=== PATIENT | male | born 1955 | race Caucasian/White ===

== ENCOUNTER 2016-10-12 20:12 | Inpatient (IN) ==
--- NOTE | 2016-10-12 20:40 | Emergency Department Note ---
Disposition Clinical Impression: COPD (chronic obstructive pulmonary disease) Disposition: Admitted As Inpatient Condition: Good Referrals: Bhavik Brewster MD [Primary Care Provider] - Forms: ED Satisfaction Letter Time of Disposition: 21:47 ([facility]) URI/Sore Throat HPI - General Chief Complaint: ED Upper Respiratory Infection Stated Complaint: low o2 sat Time Seen by Provider: 10/12/16 20:14 Source: patient Limitations: no limitations Nursing Notes Reviewed: Yes Vital Signs Reviewed: Yes - History of Present Illness HPI Narrative: Patient's been having increasing shortness of breath he has been intubated twice in the past she is here to the ER if he does not have to be intubated he says that he has been trying BiPAP at home with little relief of fevers no chills he has had shortness breath no chest pain no chest pressure denies diarrhea melena hematochezia hematemesis denies any evidence of illness or infection other than his COPD he says Pt Subjective Complaint: other (Short of breath) Onset (ago): day(s) Duration: constant, gradually worsening Severity: moderate Improves with: nothing Worsens with: exertion If sputum, description: clear Associated symptoms: Reports: nasal congestion, shortness of breath. Denies: fever, chills, voice changes, myalgias, diaphoresis, headache, rhinorrhea, sore throat, stiff neck, cough, chest pain, abdominal pain, nausea, vomiting, diarrhea, dysuria, rash, ear pain Treatments prior to arrival: none - Related Data Home Medications Medication Instructions Recorded Confirmed Ipratropium/Albuterol Sulfate 1 puff IH QID 11/14/15 10/12/16 [Combivent Respimat Inhal [place]] Trazodone HCl [TraZODone] 300 mg PO HS 11/14/15 10/12/16 Aspirin 81 mg PO DAILY 03/19/16 10/12/16 Budesonide/Formoterol 160/4.5 2 puff IH BIDR 03/19/16 10/12/16 [Symbicort 160/4.5] Albuterol Sulfate [Ventolin Hfa] 2 puff IH Q4H PRN 06/30/16 10/12/16 Cyanocobalamin (B-12) [Vitamin B12] 1,000 mcg PO DAILY 06/30/16 10/12/16 Omeprazole [PriLOSEC] 40 mg PO DAILY 06/30/16 10/12/16 Acetaminophen [Tylenol] 650 mg PO Q6HR 08/20/16 10/12/16 Loratadine [Claritin] 10 mg PO QAM 08/20/16 10/12/16 Tiotropium [Spiriva] 18 mcg IH DAILY 08/20/16 10/12/16 Ipratropium/Albuterol Neb [Duoneb] 3 ml IH Q4HR 08/31/16 10/12/16 Previous Rx's Medication Instructions Recorded Amlodipine [Norvasc] 5 mg PO DAILY #30 tablet 03/20/16 Amitriptyline [Elavil] 25 mg PO HS #30 tablet 07/06/16 Oxycodone HCl 10 mg PO Q8H PRN #15 tab 07/06/16 Pregabalin [Lyrica] 150 mg PO TID #20 capsule 07/06/16 Tramadol HCl [Ultram] 50 mg PO TID PRN #20 tablet 07/06/16 PredniSONE 40 mg PO DAILY #6 tablet 09/22/16 Allergies Allergy/AdvReac Type Severity Reaction Status Date / Time Sulfa (Sulfonamide Allergy Hives Verified 07/31/16 19:28 Antibiotics) All systems ED: reviewed and negative except as stated. Constitutional: Reports: weakness. Denies: fever, chills Eyes: Denies: eye pain, eye discharge ENT ED: Denies: ear pain, throat pain Cardiovascular: Reports: dyspnea on exertion, paroxysmal nocturnal dyspnea. Denies: chest pain, palpitations Respiratory: Reports: dyspnea, wheezes Gastrointestinal: Denies: abdominal pain, nausea, vomiting Genitourinary: Denies: urgency, dysuria, frequency Musculoskeletal: Denies: back pain, neck pain Integumentary: Denies: abrasion, lesions Neurological: Denies: headache, weakness Psychiatric: Denies: anxiety, depression Endocrine: Reports: fatigue. Denies: heat or cold intolerance Hematological/Lymphatic: Denies: easy bleeding Allergic/Immunologic: Denies: facial swelling URI PMH - Past Medical History Medical history: Reports: COPD, CVA, GERD, hepatitis, hyperlipidemia, hypertension, RA Surgical history: Reports: orthopedic, other Psychiatric history: Reports: anxiety - Social History Smoking Status: Current every day smoker Alcohol use: Reports: none Drug use: Reports: none Physical Exam - General Limitations: no limitations General appearance: alert, anxious, in distress, obese - Head Head exam: atraumatic, normocephalic, normal inspection - Eye Eye exam: Present: normal appearance, PERRL, EOMI - ENT ENT exam: normal exam, normal oropharynx, mucous membranes moist, normal external ear exam - Neck Neck exam: Present: normal inspection, full ROM, trachea midline - Chest Chest inspection: Present: normal inspection, symmetric chest wall rise - Respiratory Respiratory exam: Present: respiratory distress, accessory muscle use, prolonged expiratory phase - Cardiovascular Cardiovascular exam: Present: regular rate, normal rhythm, normal heart sounds - Abdominal Exam Abdominal exam: Present: soft, Non-Tender, normal bowel sounds. Absent: mass, pulsatile mass - Extremities Exam Extremities exam: Present: normal inspection, full ROM, normal capillary refill. Absent: tenderness, joint swelling - Expanded Lower Extremity Exam Gait: observed and normal - Back Exam Back exam: Present: normal inspection, full ROM. Absent: muscle spasm - Neurological Exam Neurological exam: Present: alert, oriented X3, CN II-XII intact - Psychiatric Psychiatric exam: Present: normal affect, normal mood, anxious - Skin Skin exam: Present: warm, dry, intact, normal color Course Course Narrative: Condition initially seen and examined gives a history that he has CO2 retention ABG was obtained patient was immediately placed on BiPAP patient was placed on settings but he does not notice settings home as result multiple medication changes were done after Dr. Jimenez's agreed to accept to service to make sure that he is not having any further deterioration patient when had his O2 turned him and his rate turned up seem to respond very well to this sign the case having improvement of his ABGs as result after multiple settings during his previous time here in the ER showing improvement patient was then transferred to [facility] for further management and stabilization of his COPD condition patient agrees and understands transferred to service of Dr. Jimenez Vital Signs Temperature 98.0 F 10/12/16 20:14 Temperature 98.7 F 10/13/16 00:20 Pulse Rate 94 10/13/16 00:57 Respiratory Rate 24 10/13/16 00:57 Blood Pressure 148/89 10/13/16 00:57 O2 Sat by Pulse Oximetry 96 10/13/16 00:57 Oxygen Delivery Oxygen Delivery Bipap Procedures - ABG Interpretation ABG Interpretation 1 Interpretation: respiratory acidosis ABG Interpretation 2 Interpretation: respiratory acidosis Additional Comments: Slight worsening ABG Interpretation 3 Interpretation: respiratory acidosis Additional Comments: Slight improvement ABGs #4,5 and 6 which are documented to the charge continues show respiratory acidosis where he is retaining right around 80s to 90s on the CO2 but with a decrease of his aorta to an increasing respiratory rate his CO2 seems to be responding well now and starting to improve patient will be admitted to [facility] transferred Upper Respiratory Infection - MDM Narrative Medical decision making narrative: COPD bronchitis pneumonia Dental CO2 narcosis as a result of CO2 retention which she has been intubated twice previously - Differential Diagnosis Differential Diagnosis: Likely: upper respiratory infection - Medical Records Medical records reviewed: Yes I reviewed the patient's medical records. - Lab Data Lab results reviewed: Yes I reviewed the patient's lab results. Result diagrams: 10/12/16 20:30 10/12/16 20:30 Lab Results 10/12/16 10/12/16 10/12/16 Range/Units 20:30 20:30 20:30 WBC 6.3 (4.3-11.1) K/mcL RBC 4.29 (4.19-5.50) M/mcL Hgb 12.2 L (12.9-16.9) g/dL Hct 39.6 (37.5-50.1) % MCV 92.3 (83.0-100.0) fL MCH 28.4 (28.0-33.3) pg MCHC 30.8 L (31.6-35.5) g/dL RDW 14.5 (11.5-14.5) % Plt Count 158 (140-400) K/mcL MPV 9.6 (9.4-12.4) fL Immature Gran % 2.2 (0-4) % Seg Neutrophils % 63.4 % Lymphocytes % 24.8 % Monocytes % 7.4 % Eosinophils % 1.6 % Basophils % 0.6 % Neutrophils # 4.0 (1.6-8.9) K/mcL Lymphocytes # 1.6 (0.6-4.6) K/mcL Monocytes # 0.5 (0.0-1.3) K/mcL Eosinophils # 0.1 (0.0-0.6) K/mcL Basophils # 0.0 (0.0-0.2) K/mcL PT 9.4 (9.4-12.1) Seconds INR 0.9 APTT 27.7 (26.0-36.0) Seconds ABG pH (7.32-7.45) pH Units ABG pCO2 (35-45) mmHg ABG pO2 (85-104) mmHg ABG HCO3 (21-27) mEQ/L ABG Total CO2 (20-26) mEq/L ABG O2 Saturation (95-98) % ABG Base Excess (-2.0 to 3.0) mEq/L Respiration Rate Liter Flow L/MIN Blood Gas Modality Inspired O2 % Inspiratory BiPAP cm H2O Expiratory BiPAP cm H2O Sodium 143 (136-145) mEq/L Potassium 4.6 H (3.5-4.5) mEq/L Chloride 101 (98-109) mEq/L Carbon Dioxide 32 H (19-29) mEq/L BUN 21 (8-26) mg/dL Creatinine 1.28 H (0.72-1.25) mg/dL Est GFR ( Amer) > 60 (> 60) Est GFR (Non-Af Amer) 58 L (> 60) BUN/Creatinine Ratio 16 (6-26) Glucose 138 H (70-99) mg/dL Calculated Osmolality 301 H (280-300) Calcium 9.2 (8.6-10.8) mg/dL B-Natriuretic Peptide (0-100) pg/mL 10/12/16 10/12/16 10/12/16 Range/Units 20:30 21:05 22:30 WBC (4.3-11.1) K/mcL RBC (4.19-5.50) M/mcL Hgb (12.9-16.9) g/dL Hct (37.5-50.1) % MCV (83.0-100.0) fL MCH (28.0-33.3) pg MCHC (31.6-35.5) g/dL RDW (11.5-14.5) % Plt Count (140-400) K/mcL MPV (9.4-12.4) fL Immature Gran % (0-4) % Seg Neutrophils % % Lymphocytes % % Monocytes % % Eosinophils % % Basophils % % Neutrophils # (1.6-8.9) K/mcL Lymphocytes # (0.6-4.6) K/mcL Monocytes # (0.0-1.3) K/mcL Eosinophils # (0.0-0.6) K/mcL Basophils # (0.0-0.2) K/mcL PT (9.4-12.1) Seconds INR APTT (26.0-36.0) Seconds ABG pH 7.28 L 7.23 L (7.32-7.45) pH Units ABG pCO2 82 H* 92 H* (35-45) mmHg ABG pO2 53 L 74 L (85-104) mmHg ABG HCO3 38.8 H 38.7 H (21-27) mEQ/L ABG Total CO2 41.3 H 41.6 H (20-26) mEq/L ABG O2 Saturation 80 L 90 L (95-98) % ABG Base Excess 12.1 H 11.2 H (-2.0 to 3.0) mEq/L Respiration Rate 16 Liter Flow 3 L/MIN Blood Gas Modality NC BiPap Inspired O2 36 % Inspiratory BiPAP 14 cm H2O Expiratory BiPAP 6 cm H2O Sodium (136-145) mEq/L Potassium (3.5-4.5) mEq/L Chloride (98-109) mEq/L Carbon Dioxide (19-29) mEq/L BUN (8-26) mg/dL Creatinine (0.72-1.25) mg/dL Est GFR ( Amer) (> 60) Est GFR (Non-Af Amer) (> 60) BUN/Creatinine Ratio (6-26) Glucose (70-99) mg/dL Calculated Osmolality (280-300) Calcium (8.6-10.8) mg/dL B-Natriuretic Peptide 19 (0-100) pg/mL 10/12/16 10/13/16 Range/Units 23:55 00:40 WBC (4.3-11.1) K/mcL RBC (4.19-5.50) M/mcL Hgb (12.9-16.9) g/dL Hct (37.5-50.1) % MCV (83.0-100.0) fL MCH (28.0-33.3) pg MCHC (31.6-35.5) g/dL RDW (11.5-14.5) % Plt Count (140-400) K/mcL MPV (9.4-12.4) fL Immature Gran % (0-4) % Seg Neutrophils % % Lymphocytes % % Monocytes % % Eosinophils % % Basophils % % Neutrophils # (1.6-8.9) K/mcL Lymphocytes # (0.6-4.6) K/mcL Monocytes # (0.0-1.3) K/mcL Eosinophils # (0.0-0.6) K/mcL Basophils # (0.0-0.2) K/mcL PT (9.4-12.1) Seconds INR APTT (26.0-36.0) Seconds ABG pH 7.20 L* 7.23 L (7.32-7.45) pH Units ABG pCO2 99 H* 87 H* (35-45) mmHg ABG pO2 68 L 76 L (85-104) mmHg ABG HCO3 38.3 H 36.5 H (21-27) mEQ/L ABG Total CO2 41.3 H 39.2 H (20-26) mEq/L ABG O2 Saturation 87 L 91 L (95-98) % ABG Base Excess 6.5 H 8.9 H (-2.0 to 3.0) mEq/L Respiration Rate 20 24 Liter Flow L/MIN Blood Gas Modality bipap BiPap Inspired O2 35 35 % Inspiratory BiPAP 18 18 cm H2O Expiratory BiPAP 8 8 cm H2O Sodium (136-145) mEq/L Potassium (3.5-4.5) mEq/L Chloride (98-109) mEq/L Carbon Dioxide (19-29) mEq/L BUN (8-26) mg/dL Creatinine (0.72-1.25) mg/dL Est GFR ( Amer) (> 60) Est GFR (Non-Af Amer) (> 60) BUN/Creatinine Ratio (6-26) Glucose (70-99) mg/dL Calculated Osmolality (280-300) Calcium (8.6-10.8) mg/dL B-Natriuretic Peptide (0-100) pg/mL - Radiology Data Radiology results reviewed: Yes I reviewed the patient's radiology results. Critical Care Time Critical Care Time: No
[2016-10-12 20:48] LABS: Basophils % 0.6 %; Eosinophils # 0.1 K/mcL (0.0-0.6); Eosinophils % 1.6 %; Hematocrit 39.6 % (37.5-50.1); Hemoglobin 12.2 g/dL (12.9-16.9); Immature Granulocytes % 2.2 % (0-4); Lymphocytes # 1.6 K/mcL (0.6-4.6); Lymphocytes % 24.8 %; Mean Corpuscular HGB Conc 30.8 g/dL (31.6-35.5); Mean Corpuscular Hemoglobin 28.4 pg (28.0-33.3); Mean Corpuscular Volume 92.3 fL (83.0-100.0); Mean Platelet Volume 9.6 fL (9.4-12.4); Monocytes # 0.5 K/mcL (0.0-1.3); Monocytes % 7.4 %; Platelet Count 158 K/mcL (140-400); Red Blood Count 4.29 M/mcL (4.19-5.50); Red Cell Distribution Width 14.5 % (11.5-14.5); Segmented Neutrophils % 63.4 %
[2016-10-12 20:51] LABS: INR 0.9; Prothrombin Time 9.4 Seconds (9.4-12.1)
[2016-10-12 20:54] LABS: Activated Partial Thrombo Time 27.7 Seconds (26.0-36.0)
[2016-10-12 20:58] LABS: BUN/Creatinine Ratio 16 (6-26); Blood Urea Nitrogen 21 mg/dL (8-26); Calcium 9.2 mg/dL (8.6-10.8); Carbon Dioxide 32 mEq/L (19-29); Chloride 101 mEq/L (98-109); Glucose 138 mg/dL (70-99); Osmolality,Calculated 301 (280-300); Potassium 4.6 mEq/L (3.5-4.5); Sodium 143 mEq/L (136-145); eGFR For African Americans > 60 (> 60); eGFR For Non-African Americans 58 (> 60)
[2016-10-12 21:15] LABS: ABG PH 7.28 pH Units (7.32-7.45); Blood Gas Liter Flow 3 L/MIN
[2016-10-12 21:16] LABS: ABG Base Excess 12.1 mEq/L (-2.0 to 3.0); ABG HCO3 38.8 mEQ/L (21-27); ABG PCO2 82 mmHg (35-45); ABG PO2 53 mmHg (85-104); ABG TCO2 41.3 mEq/L (20-26)
[2016-10-12 21:17] LABS: ABG Oxygen Saturation 80 % (95-98)
[2016-10-12 22:37] LABS: ABG Base Excess 11.2 mEq/L (-2.0 to 3.0); ABG HCO3 38.7 mEQ/L (21-27); ABG PCO2 92 mmHg (35-45); ABG PH 7.23 pH Units (7.32-7.45); ABG PO2 74 mmHg (85-104); ABG TCO2 41.6 mEq/L (20-26)
[2016-10-12 22:38] LABS: ABG Oxygen Saturation 90 % (95-98)
[2016-10-13 00:05] LABS: Blood Gas FiO2 35 %
[2016-10-13 00:06] LABS: Blood Gas BiPAP(E) 8 cm H2O; Blood Gas BiPAP(I) 18 cm H2O; Blood Gas Respiration Rate 20
[2016-10-13 00:09] LABS: ABG Base Excess 6.5 mEq/L (-2.0 to 3.0); ABG HCO3 38.3 mEQ/L (21-27); ABG PCO2 99 mmHg (35-45); ABG PO2 68 mmHg (85-104); ABG TCO2 41.3 mEq/L (20-26)
[2016-10-13 00:10] LABS: ABG Oxygen Saturation 87 % (95-98)
[2016-10-13 00:43] LABS: Blood Gas BiPAP(E) 8 cm H2O; Blood Gas BiPAP(I) 18 cm H2O; Blood Gas FiO2 35 %; Blood Gas Respiration Rate 24
[2016-10-13 00:47] LABS: ABG PH 7.23 pH Units (7.32-7.45)
[2016-10-13 00:48] LABS: ABG PCO2 87 mmHg (35-45); ABG PO2 76 mmHg (85-104)
[2016-10-13 00:49] LABS: ABG Base Excess 8.9 mEq/L (-2.0 to 3.0); ABG HCO3 36.5 mEQ/L (21-27); ABG Oxygen Saturation 91 % (95-98); ABG TCO2 39.2 mEq/L (20-26)
[2016-10-13 01:20] LABS: Blood Gas BiPAP(E) 6 cm H2O; Blood Gas BiPAP(I) 14 cm H2O; Blood Gas FiO2 36 %; Blood Gas Respiration Rate 16
[2016-10-13 02:18] LABS: Blood Gas BiPAP(E) 8 cm H2O; Blood Gas BiPAP(I) 18 cm H2O; Blood Gas FiO2 35 %; Blood Gas Respiration Rate 26
[2016-10-13 02:20] LABS: ABG PH 7.22 pH Units (7.32-7.45)
[2016-10-13 02:23] LABS: ABG HCO3 36.8 mEQ/L (21-27); ABG PCO2 90 mmHg (35-45); ABG PO2 76 mmHg (85-104); ABG TCO2 39.5 mEq/L (20-26)
[2016-10-13 02:24] LABS: ABG Base Excess 5.7 mEq/L (-2.0 to 3.0); ABG Oxygen Saturation 91 % (95-98)
[2016-10-13 03:08] LABS: Blood Gas BiPAP(E) 8 cm H2O; Blood Gas BiPAP(I) 18 cm H2O; Blood Gas FiO2 32 %; Blood Gas Respiration Rate 26
[2016-10-13 03:09] LABS: ABG PH 7.25 pH Units (7.32-7.45)
[2016-10-13 03:10] LABS: ABG Base Excess 9.1 mEq/L (-2.0 to 3.0); ABG HCO3 36.4 mEQ/L (21-27); ABG Oxygen Saturation 85 % (95-98); ABG PCO2 84 mmHg (35-45); ABG PO2 62 mmHg (85-104)
[2016-10-13] MEDS ORDERED: Ondansetron ODT 4 MG TAB.RAPDIS SL PRN (03:35)
[2016-10-13] MEDS ORDERED: Acetaminophen 325 MG TABLET PO SCH (03:35)
[2016-10-13] MEDS ORDERED: Albuterol 2.5 MG/3 ML NEBULIZER IH PRN (03:35)
[2016-10-13] MEDS ORDERED: Naloxone 0.4 MG/ML INJ IVP PRN (03:35)
[2016-10-13] MEDS: Ipratropium/Albuterol Neb 3 ML IH SCH ×2 (04:21→04:23)
[2016-10-13] MEDS: Budesonide/Formoterol 160/4.5 MDI IH SCH ×3 (04:21→21:21)
[2016-10-13] MEDS ORDERED: Acetaminophen 325 MG TABLET PO PRN (04:38)
[2016-10-13 06:13] LABS: Blood Gas BiPAP(E) 8 cm H2O; Blood Gas BiPAP(I) 18 cm H2O; Blood Gas FiO2 32 %; Blood Gas Respiration Rate 26
[2016-10-13 06:16] LABS: ABG PH 7.28 pH Units (7.32-7.45)
[2016-10-13 06:17] LABS: ABG Base Excess 10.2 mEq/L (-2.0 to 3.0); ABG HCO3 36.9 mEQ/L (21-27); ABG Oxygen Saturation 84 % (95-98); ABG PCO2 78 mmHg (35-45); ABG PO2 57 mmHg (85-104); ABG TCO2 39.3 mEq/L (20-26)
[2016-10-13 06:52] LABS: Basophils % 0.4 %; Eosinophils # 0.1 K/mcL (0.0-0.6); Eosinophils % 1.4 %; Hematocrit 38.1 % (37.5-50.1); Hemoglobin 11.6 g/dL (12.9-16.9); Immature Granulocytes % 1.8 % (0-4); Lymphocytes # 0.6 K/mcL (0.6-4.6); Lymphocytes % 10.1 %; Mean Corpuscular HGB Conc 30.4 g/dL (31.6-35.5); Mean Corpuscular Hemoglobin 28.4 pg (28.0-33.3); Mean Corpuscular Volume 93.2 fL (83.0-100.0); Mean Platelet Volume 9.8 fL (9.4-12.4); Monocytes # 0.4 K/mcL (0.0-1.3); Monocytes % 6.9 %; Neutrophils # 4.5 K/mcL (1.6-8.9); Platelet Count 140 K/mcL (140-400); Red Blood Count 4.09 M/mcL (4.19-5.50); Red Cell Distribution Width 14.6 % (11.5-14.5); Segmented Neutrophils % 79.4 %
[2016-10-13 06:57] LABS: Prothrombin Time 10.2 Seconds (9.4-12.1)
[2016-10-13 07:00] LABS: Activated Partial Thrombo Time 27.4 Seconds (26.0-36.0)
[2016-10-13 07:08] LABS: BUN/Creatinine Ratio 20 (6-26); Blood Urea Nitrogen 20 mg/dL (8-26); Calcium 9.1 mg/dL (8.6-10.8); Carbon Dioxide 33 mEq/L (19-29); Chloride 102 mEq/L (98-109); Glucose 114 mg/dL (70-99); Osmolality,Calculated 299 (280-300); Potassium 4.5 mEq/L (3.5-4.5); Sodium 143 mEq/L (136-145); eGFR For African Americans > 60 (> 60); eGFR For Non-African Americans > 60 (> 60)
[2016-10-13] MEDS: Tiotropium 18 MCG inhalation IH SCH (10:10)
[2016-10-13] MEDS: Aspirin 81 MG TAB.CHEW PO SCH (10:21)
[2016-10-13] MEDS: Loratadine 10 MG TABLET PO SCH ×2 (10:21→10:36)
[2016-10-13] MEDS: Cyanocobalamin (B-12) 1,000 MCG TABLET PO SCH ×2 (10:21→10:36)
[2016-10-13] MEDS: Pregabalin 50 MG CAPSULE PO SCH ×3 (10:21→20:56)
[2016-10-13] MEDS: *HR* OxyCODONE Immed Rel 5 MG TABLET PO PRN ×2 (10:35→18:41)
--- NOTE | 2016-10-13 10:53 | Internal Med History&Physical ---
Date of Encounter: 10/13/16 Time of Encounter: 10:25 Assessment and Plan (1) Pneumonia Current visit: No Status: Acute Chest x-ray showed bilateral patchy infiltrates. He has been started on Levaquin. I will add lactobacillus. Qualifiers: Pneumonia type: due to unspecified organism Laterality: right Lung location: lower lobe of lung Qualified Code(s): J18.9 - Pneumonia, unspecified organism (2) COPD (chronic obstructive pulmonary disease) Current visit: No Status: Chronic Will continue with IV steroids, antibiotics, and Spiriva with prn albuterol nebs. Recheck blood gas in a.m. Qualifiers: COPD type: emphysema Emphysema type: unspecified Qualified Code(s): J43.9 - Emphysema, unspecified (3) DARYL (obstructive sleep apnea) Current visit: No Status: Chronic Continue CPAP at bedtime and as needed (4) Anemia Current visit: No Status: Chronic Anemia testing done 04/20/2016 showed no factor deficiency. Will recheck in a.m. Qualifiers: Anemia type: unspecified type Qualified Code(s): D64.9 - Anemia, unspecified Internal Medicine - H&P: HPI Chief complaint: Hypoxemia Admitted From: Home Plans for Post Hospital Care: Home History of present illness: Mr. eDlcid is a 61 year old male came to emergency complaining of hypoxemia which he states his saturations were in the 90s and 80s percent stapling. He did not feel dyspneic or have cough or chest pain. He took an albuterol nebulizer treatment with minimal change in his saturations. He came to emergency room and was evaluated and found to have acute respiratory insufficiency with ABG showing pH 7.20 and PCO2 of 99. He was placed on BiPAP and admitted to [facility] floor for ongoing care needs. He was hospitalized last at [facility] April 2016 with a diagnosis of pneumonia. His respiratory history is significant for having smoked since age 15 up to 2 packs per day. He wears oxygen 24/7 and uses CPAP at bedtime and as needed during the daytime for dyspnea. He had PFTs done approximately 2011 and was told he had COPD. Past Med Surg Social Fam HX - Past Medical History Medical history: COPD, CVA, GERD, hepatitis, hyperlipidemia, hypertension, RA Psychiatric history: anxiety - Past Surgical History Surgical History: orthopedic, other - Social History Smoking Status: Current every day smoker Smokeless Tobacco Status: No Alcohol use: none Drug use: none - Family History Father Living Status: Hx Family Cardiac Disorders: Yes Hx Family Respiratory Disorders: Yes Hx Family Cancer: No Hx Family GI Disorders: No Hx Family Endocrine Disorder: No Hx Family Neuromuscular Disorders: No Hx Family Neurologic Disorders: No Hx Family HEENT Disorders: No Hx Family Autoimmune Disorders: No Internal Medicine - H&P: Meds Ipratropium/Albuterol Sulfate [Combivent Respimat Inhal [place]] 1 puff IH QID [History] Trazodone HCl [TraZODone] 300 mg PO HS 11/14/15 [History] Aspirin 81 mg PO DAILY 03/19/16 [History] Budesonide/Formoterol 160/4.5 [Symbicort 160/4.5] 2 puff IH BIDR 03/19/16 [ History] Amlodipine [Norvasc] 5 mg PO DAILY #30 tablet 03/20/16 [Rx] Albuterol Sulfate [Ventolin Hfa] 2 puff IH Q4H PRN 06/30/16 [History] Cyanocobalamin (B-12) [Vitamin B12] 1,000 mcg PO DAILY 06/30/16 [History] Omeprazole [PriLOSEC] 40 mg PO DAILY 06/30/16 [History] Amitriptyline [Elavil] 25 mg PO HS #30 tablet 07/06/16 [Rx] Oxycodone HCl 10 mg PO Q8H PRN #15 tab 07/06/16 [Rx] Pregabalin [Lyrica] 150 mg PO TID #20 capsule 07/06/16 [Rx] Tramadol HCl [Ultram] 50 mg PO TID PRN #20 tablet 07/06/16 [Rx] Acetaminophen [Tylenol] 650 mg PO Q6HR 08/20/16 [History] Loratadine [Claritin] 10 mg PO QAM 08/20/16 [History] Tiotropium [Spiriva] 18 mcg IH DAILY 08/20/16 [History] Ipratropium/Albuterol Neb [Duoneb] 3 ml IH Q4HR 08/31/16 [History] PredniSONE 40 mg PO DAILY #6 tablet 09/22/16 [Rx] Allergies Sulfa (Sulfonamide Antibiotics) Allergy (Verified 07/31/16 19:28) Hives All Systems PM: A 10-system review of systems was performed and is negative for pertinent findings except as documented above in the HPI. Review of systems: Review of systems from hospitalization April 2016 were reviewed and revised as below. Gen.: His weight is increased from 90.356 kg on 04/20/2016 to admission weight of 99.79 kg at present. Cardiovascular: He denies PA hypertension heart failure angina DVT or pulmonary embolus Respiratory: As per history of present illness GI: He has been diagnosed with hepatitis C but states he was treated with Harvoni and is now free of the virus. The chart reports he has had hepatitis B in the past but he denies this. He denies other disorders of his liver or exocrine pancreas. He has asymptomatic gallstones. : Denies hematuria dysuria or kidney stones Neurologic: He claims he has CVA 2014 affecting his left hand fourth and fifth fingers. He was told in the hospital he had ulnar neuropathy on the left side affecting his left fourth and fifth fingers. No referral was made to orthopedist for ulnar nerve transposition surgery. He has had numbness of his right hand since June 2014. He had foot drop onset spring 2014 on his left foot and wears an AFO splint. Endocrine: He denies diabetes thyroid disease or hyperlipidemia Hematology/oncology: He has anemia but denies internal malignancies. He had B12 deficiency documented in the past Psychiatric: He has history of depression but does not take regular medication for this [place] skeletal: He had surgery 01/20/2016 for "fluid" of the right shoulder. He had debridement 03/18/2016 by and was found to have a rotator cuff tear. He received a 6 week course of IV Kefzol for osteomyelitis. He has a diagnosis of rheumatoid arthritis and follows with a target setter. He denies gout or other bone joint or muscle disorders. - Constitutional Vitals: Temp Pulse Resp BP Pulse Ox 98.4 F 83 20 137/87 92 L 10/13/16 10:38 10/13/16 10:38 10/13/16 10:38 10/13/16 10:38 10/13/16 10:38 Exam: Gen.: He is well-developed overweight male lying in bed who appears in minimal distress at present time. HEENT: Head is atraumatic and normocephalic. Eyes: EOMI. There is no scleral icterus. Mouth: Mucosa is moist. Neck: Supple and nontender. There is no thyromegaly or adenopathy noted. Heart: Regular without murmurs gallops or ectopics. Lungs: He has diminished breath sounds diffusely. There is mild prolonged expiratory phase. No egophony is heard. Abdomen: Soft and nontender. No masses or guarding are noted. Extremities: There is no cyanosis edema or clubbing noted. Dorsalis pedis and posttibial pulses are trace palpable bilaterally. He has rheumatoid arthritis changes of his hands with ulnar deviation and enlargement of his MCP joints. Neurologic: Mental status: He is talkative and a good historian. Cranial nerves : Smile is symmetric. Forehead wrinkles bilaterally. Tongue protrudes midline. EOMI. Motor: There is no pronator drift. Cerebellar: Finger to nose is intact bilaterally. Skin: Warm and dry Internal Med - H&P Results - Labs CBC & Chem 7: 10/13/16 06:21 10/13/16 06:21 Labs: Short CBC 10/13/16 Range/Units 06:21 WBC 5.7 (4.3-11.1) K/mcL Hgb 11.6 L (12.9-16.9) g/dL Hct 38.1 (37.5-50.1) % Plt Count 140 (140-400) K/mcL Neutrophils # 4.5 (1.6-8.9) K/mcL BMP 10/13/16 10/13/16 06:21 06:21 Sodium 143 Potassium 4.5 Chloride 102 Carbon Dioxide 33 H BUN 20 Creatinine 1.01 Glucose 115 H 114 H Calcium 9.1 - ABG Interpretation ABG results: 10/13/16 06:05 ABG pH 7.28 L ABG pCO2 78 H* ABG pO2 57 L ABG HCO3 36.9 H ABG Total CO2 39.3 H ABG O2 Saturation 84 L ABG Base Excess 10.2 H
[2016-10-13] MEDS: Nicotine 14 MG PATCH.TD24 TD SCH (11:53)
[2016-10-13] MEDS: PredniSONE 10 MG TABLET PO SCH (16:18)
[2016-10-13] MEDS: *HR* Enoxaparin 40 MG/0.4 ML SYRINGE SQ SCH (17:38)
[2016-10-13] MEDS: Lactobacillus 1 EACH CAP.SPRINK PO SCH (20:57)
[2016-10-14 05:08] LABS: Basophils % 0.3 %; Hematocrit 37.1 % (37.5-50.1); Hemoglobin 11.5 g/dL (12.9-16.9); Immature Granulocytes % 2.6 % (0-4); Lymphocytes # 0.8 K/mcL (0.6-4.6); Mean Corpuscular Hemoglobin 28.3 pg (28.0-33.3); Mean Corpuscular Volume 91.4 fL (83.0-100.0); Mean Platelet Volume 9.6 fL (9.4-12.4); Monocytes # 0.6 K/mcL (0.0-1.3); Monocytes % 8.4 %; Neutrophils # 5.3 K/mcL (1.6-8.9); Platelet Count 148 K/mcL (140-400); Red Blood Count 4.06 M/mcL (4.19-5.50); Red Cell Distribution Width 13.8 % (11.5-14.5); Segmented Neutrophils % 77.7 %
[2016-10-14] MEDS: *HR* Enoxaparin 40 MG/0.4 ML SYRINGE SQ SCH ×2 (06:23→07:53)
[2016-10-14] MEDS: *HR* OxyCODONE Immed Rel 5 MG TABLET PO PRN (06:40)
[2016-10-14 06:50] LABS: ABG Base Excess 10.7 mEq/L (-2.0 to 3.0); ABG HCO3 36.4 mEQ/L (21-27); ABG Oxygen Saturation 85 % (95-98); ABG PCO2 67 mmHg (35-45); ABG PH 7.35 pH Units (7.32-7.45); ABG PO2 54 mmHg (85-104); ABG TCO2 38.4 mEq/L (20-26); Blood Gas BiPAP(E) 8 cm H2O; Blood Gas BiPAP(I) 18 cm H2O; Blood Gas FiO2 35 %; Blood Gas Respiration Rate 26
[2016-10-14 08:18] VITALS: BP 134/77
[2016-10-14] MEDS: Lactobacillus 1 EACH CAP.SPRINK PO SCH (09:14)
[2016-10-14] MEDS: PredniSONE 10 MG TABLET PO SCH (09:14)
[2016-10-14] MEDS: Cyanocobalamin (B-12) 1,000 MCG TABLET PO SCH (09:14)
[2016-10-14] MEDS: Pregabalin 50 MG CAPSULE PO SCH (09:15)
[2016-10-14] MEDS: Nicotine 14 MG PATCH.TD24 TD SCH (09:15)
[2016-10-14] MEDS: Aspirin 81 MG TAB.CHEW PO SCH (09:15)
[2016-10-14] MEDS: Tiotropium 18 MCG inhalation IH SCH (09:24)
[2016-10-14] MEDS: Budesonide/Formoterol 160/4.5 MDI IH SCH (09:25)
[2016-10-14 09:29] LABS: % Iron Saturation 5 % (20-55); Iron 20 mcg/dL (65-175); Transferrin 298 mg/dL (174-364)
[2016-10-14 09:51] LABS: Ferritin 26 ng/ml (22-275)
--- NOTE | 2016-10-14 10:05 | Discharge Summary ---
Date of Encounter: 10/14/16 Time of Encounter: 09:45 - Discharge Diagnosis (1) Pneumonia Priority: Primary Status: Acute Qualifiers: Pneumonia type: due to unspecified organism Laterality: right Lung location: lower lobe of lung Qualified Code(s): J18.9 - Pneumonia, unspecified organism (2) COPD (chronic obstructive pulmonary disease) Priority: Secondary Status: Chronic Qualifiers: COPD type: emphysema Emphysema type: unspecified Qualified Code(s): J43.9 - Emphysema, unspecified (3) DARYL (obstructive sleep apnea) Priority: Secondary Status: Chronic (4) Anemia Priority: Secondary Status: Chronic Qualifiers: Anemia type: unspecified type Qualified Code(s): D64.9 - Anemia, unspecified - Discharge Medications Prescriptions: Ascorbic Acid [Vitamin C] 500 mg PO DAILY #30 tablet.er Ferrous Sulfate 325 mg PO DAILY #30 tablet. Lactobacillus [Culturelle] 1 each PO BID #10 cap.sprink Levofloxacin [Levaquin] 500 mg PO DAILY #5 tablet Home Medications: Trazodone HCl [TraZODone] 300 mg PO HS 11/14/15 [History] Aspirin 81 mg PO DAILY 03/19/16 [History] Budesonide/Formoterol 160/4.5 [Symbicort 160/4.5] 2 puff IH BIDR 03/19/16 [ History] Amlodipine [Norvasc] 5 mg PO DAILY #30 tablet 03/20/16 [Rx] Albuterol Sulfate [Ventolin Hfa] 2 puff IH Q4H PRN 06/30/16 [History] Cyanocobalamin (B-12) [Vitamin B12] 1,000 mcg PO DAILY 06/30/16 [History] Omeprazole [PriLOSEC] 40 mg PO DAILY 06/30/16 [History] Amitriptyline [Elavil] 25 mg PO HS #30 tablet 07/06/16 [Rx] Oxycodone HCl 10 mg PO Q8H PRN #15 tab 07/06/16 [Rx] Pregabalin [Lyrica] 150 mg PO TID #20 capsule 07/06/16 [Rx] Tramadol HCl [Ultram] 50 mg PO TID PRN #20 tablet 07/06/16 [Rx] Acetaminophen [Tylenol] 650 mg PO Q6HR 08/20/16 [History] Tiotropium [Spiriva] 18 mcg IH DAILY 08/20/16 [History] Ascorbic Acid [Vitamin C] 500 mg PO DAILY #30 tablet.er 10/14/16 [Rx] Ferrous Sulfate 325 mg PO DAILY #30 tablet. 10/14/16 [Rx] Lactobacillus [Culturelle] 1 each PO BID #10 cap.sprink 10/14/16 [Rx] Levofloxacin [Levaquin] 500 mg PO DAILY #5 tablet 10/14/16 [Rx] Allergies/Adverse Reactions: Allergies Sulfa (Sulfonamide Antibiotics) Allergy (Verified 07/31/16 19:28) Hives Date of admission: 10/13/16 16:39 Primary care physician: Bhavik Brewster MD - Patient Status Disposition: Home, Self-Care Condition: Good Overall status at discharge: patient is progressing back to baseline - Discharge Instructions Follow Up With: Bhavik Brewster MD [Primary Care Provider] - 1 week - Diet and Activity Activity: resume usual activities as tolerated, wear oxygen at all times Diet: advance to your usual diet Hospital course: Mr. Delcid is a 61 year old male who came to emergency complaining of hypoxemia. He states his saturations were in the 70s and 80s percent range. He did not feel dyspneic or have cough or chest pain. He took an albuterol nebulizer treatment with minimal change in his saturations. He came to emergency room and was evaluated and found to have acute respiratory insufficiency with ABG showing pH 7.20 and PCO2 of 99. He was placed on BiPAP and admitted to [facility] floor for ongoing care needs. Initial orders were written by the emergency room physician. I saw him on October 13 and performed the history and physical. He was started on Levaquin for probable bilateral pneumonia. Lactobacillus was added. He remained afebrile during his hospital stay. Follow-up CBC on October 14 showed a WBC normal at 6.8 with 77.7% segs. Follow-up ABG showed pH normal at 7.35 with PCO2 improved to 67. His PO2 was 54 but I felt this would improve with discontinuing smoking and improvement of the pneumonia. Anemia testing was ordered with some results pending at time of this dictation. His serum iron returned low at 20 and transferrin saturation low at 5%. He will be started on ferrous sulfate with vitamin C. When I saw him on October 14 he felt improved and back to his baseline. He wished to be discharged which I felt was reasonable. We had a long discussion about his need to become a nonsmoker. He will follow with his PCP Dr. Brewster within 1 week. - Time Spent with Patient Total time spent providing and/or coordinating discharge services: - Constitutional Vitals: Temp Pulse Resp BP Pulse Ox 98.3 F 69 26 134/77 96 10/13/16 23:40 10/14/16 08:17 10/14/16 01:40 10/14/16 08:17 10/14/16 08:17
[2016-10-14 10:06] LABS: Folate 9.8 ng/mL (7.0-31.4)
== END 2016-10-14 11:20 | disposition home or self-care (01) | DRG 140 ==
LOC: INPPIK 20:12 → EMEROOPIK 20:12 → INPPIK 10-13 03:57
PROVIDERS: ADMIT Internal Medicine; ATTEND Internal Medicine

== ENCOUNTER 2018-03-20 14:24 | Observation (INO) ==
--- NOTE | 2018-03-20 14:30 | Emergency Department Note ---
Disposition Clinical Impression: COPD (chronic obstructive pulmonary disease), Chest pain Disposition: Admitted As Inpatient Condition: Fair Referrals: Bhavik Brewster MD [Primary Care Provider] - Forms: ED Satisfaction Letter, Work/School Release Time of Disposition: 17:04 General Adult HPI - General Chief complaint: ED General Medical Stated complaint: Broke out in cold sweat, not feeling well Time Seen by Provider: 03/20/18 14:28 Source: patient Mode of arrival: ambulatory Limitations: no limitations Nursing Notes Reviewed: Yes Vital Signs Reviewed: Yes - History of Present Illness HPI Narrative: Was home this morning when he broke into a profound sweat became diaphoretic and had near-syncopal episode patient now presents here to the emergency room complaining of symptoms associated with this he states he just doesn't feel right feels that she's had a past he denies any blurred vision double vision loss vision diarrhea melena hematochezia hematemesis numbness and weakness recent weight gain or weight loss all systems have been reviewed and are otherwise negative Onset (ago): hour(s) (8) Location: other (Generalized) Consistency: now resolved Improves with: nothing Worsens with: nothing Associated symptoms: Reports: chest pain, diaphoresis, nausea/vomiting, shortness of breath, syncope (Near), weakness. Denies: confusion, cough, fever/ chills, headaches, loss of appetite, malaise, rash, seizure Treatments Prior to Arrival: Aspirin - Related Data Home Medications Medication Instructions Recorded Confirmed Trazodone HCl [TraZODone] 150 mg PO HS 11/14/15 03/20/18 Aspirin 81 mg PO DAILY 03/19/16 03/20/18 Budesonide/Formoterol 160/4.5 2 puff IH BIDR 03/19/16 03/20/18 [Symbicort 160/4.5] Albuterol Sulfate [Ventolin Hfa] 2 puff IH Q4H PRN 06/30/16 03/20/18 Omeprazole [PriLOSEC] 20 mg PO DAILY 06/30/16 03/20/18 Tiotropium [Spiriva] 18 mcg IH DAILY 08/20/16 03/20/18 Gabapentin [Neurontin] 800 mg PO TID 03/15/17 03/20/18 Potassium Chloride [K-Tab ER] 10 meq PO DAILY 10/20/17 03/20/18 Oxycodone HCl [Oxycontin] 10 mg PO 03/20/18 PredniSONE [Zan] 2 PO 03/20/18 Previous Rx's Medication Instructions Recorded amLODIPine [Norvasc] 5 mg PO DAILY #30 tablet 03/20/16 Allergies Allergy/AdvReac Type Severity Reaction Status Date / Time Sulfa (Sulfonamide Allergy Hives Verified 02/23/18 19:20 Antibiotics) All systems ED: reviewed and negative except as stated. Review of Systems: As Per HPI Constitutional: Reports: weakness. Denies: fever, chills Eyes: Denies: eye pain, eye discharge ENT ED: Denies: ear pain, throat pain Cardiovascular: Denies: chest pain, palpitations Respiratory: Denies: cough, dyspnea, wheezes Gastrointestinal: Denies: abdominal pain, nausea, vomiting Genitourinary: Denies: urgency, dysuria, frequency Musculoskeletal: Denies: back pain, neck pain Integumentary: Denies: rash, abrasion Neurological: Denies: headache, weakness Psychiatric: Denies: anxiety Endocrine: Denies: fatigue Hematological/Lymphatic: Denies: easy bleeding Allergic/Immunologic: Denies: facial swelling Past Medical History - Past Medical History Medical history: Reports: COPD, CVA, GERD, hepatitis, hyperlipidemia, hypertension, peripheral artery disease, RA, other Surgical history: Reports: orthopedic, other (Right shoulder) Psychiatric history: Reports: anxiety - Social History Smoking Status: Current every day smoker Smokeless Tobacco Status: No Alcohol use: Reports: none Drug use: Reports: none Physical Exam - General Limitations: no limitations General appearance: alert, in no apparent distress, anxious - Head Head exam: atraumatic, normocephalic, normal inspection - Eye Eye exam: Present: normal appearance, PERRL, EOMI - ENT ENT exam: normal exam, normal oropharynx, mucous membranes moist, TM's normal bilaterally, normal external ear exam - Neck Neck exam: Present: normal inspection, full ROM, trachea midline - Chest Chest inspection: Present: normal inspection, symmetric chest wall rise - Respiratory Respiratory exam: Present: normal lung sounds bilaterally - Cardiovascular Cardiovascular exam: Present: regular rate, normal rhythm, normal heart sounds - Abdominal Exam Abdominal exam: Present: soft, Non-Tender, normal bowel sounds. Absent: tenderness, distention, guarding, rebound, rigidity, mass, pulsatile mass - Extremities Exam Extremities exam: Present: normal inspection, full ROM, normal capillary refill. Absent: tenderness, pedal edema, joint swelling, calf tenderness - Expanded Upper Extremity Exam Shoulder exam: Present: normal inspection, full ROM Arm exam: Present: normal inspection, full ROM Elbow exam: Present: normal inspection, full ROM Forearm/Wrist exam: Present: normal inspection, full ROM Hand exam: Present: normal inspection, full ROM Vascular exam: Normal: capillary refill, radial pulse - Expanded Lower Extremity Exam Hip/Pelvis exam: Present: normal inspection, full ROM Upper leg exam: Present: normal inspection, full ROM Knee exam: Present: normal inspection, full ROM Lower leg exam: Present: normal inspection, full ROM Ankle exam: Present: normal inspection, full ROM Foot/toe exam: Present: normal inspection, full ROM Neurovascular/Tendon exam: Present: normal capillary refill, normal fine/light touch. Absent: motor deficit, sensory deficit, tendon deficit Gait: observed and normal - Back Exam Back exam: Present: normal inspection, full ROM. Absent: muscle spasm - Neurological Exam Neurological exam: Present: alert, oriented X3, CN II-XII intact, normal gait - Psychiatric Psychiatric exam: Present: normal affect, normal mood - Skin Skin exam: Present: warm, dry, intact, normal color Course Course Narrative: Seen and examined E data and chest x-ray were obtained patient appears to be wheezing in the lung jonas which may here to be more of a COPD type presentation versus that of an actual near syncope chest pain pressure type recommend observation transfer to [facility] service of Dr. Jimenez agrees Vital Signs Pulse Rate 83 03/20/18 14:25 Respiratory Rate 20 03/20/18 14:25 Blood Pressure 125/81 03/20/18 14:25 O2 Sat by Pulse Oximetry 93 03/20/18 14:25 Temperature 98.2 F 03/20/18 14:27 Pulse Rate 70 03/20/18 16:58 Respiratory Rate 18 03/20/18 16:58 Blood Pressure 147/88 03/20/18 16:58 O2 Sat by Pulse Oximetry 96 03/20/18 16:58 Oxygen Delivery Oxygen Delivery Nasal Cannula Medical Decision Making - Medical Records Medical records reviewed: Yes I reviewed the patient's medical records. - Lab Data Lab results reviewed: Yes I reviewed the patient's lab results. Result diagrams: 03/20/18 14:52 03/20/18 14:52 Lab Results 03/20/18 03/20/18 03/20/18 Range/Units 14:52 14:52 14:52 WBC 7.5 (4.3-11.1) K/mcL RBC 5.26 (4.19-5.50) M/mcL Hgb 15.7 (12.9-16.9) g/dL Hct 48.3 (37.5-50.1) % MCV 91.8 (83.0-100.0) fL MCH 29.8 (28.0-33.3) pg MCHC 32.5 (31.6-35.5) g/dL RDW 12.0 (11.5-14.5) % Plt Count 165 (140-400) K/mcL MPV 9.2 L (9.4-12.4) fL Immature Gran % 0.7 (0-4) % Seg Neutrophils % 77.8 % Lymphocytes % 13.7 % Monocytes % 6.6 % Eosinophils % 0.7 % Basophils % 0.5 % Neutrophils # 5.8 (1.6-8.9) K/mcL Lymphocytes # 1.0 (0.6-4.6) K/mcL Monocytes # 0.5 (0.0-1.3) K/mcL Eosinophils # 0.1 (0.0-0.6) K/mcL Basophils # 0.0 (0.0-0.2) K/mcL PT 11.5 (9.4-12.1) Seconds INR 1.0 APTT 27.0 (26.0-36.0) Seconds Sodium 137 (136-145) mEq/L Potassium 3.6 (3.5-5.1) mEq/L Chloride 98 (98-107) mEq/L Carbon Dioxide 31 H (23-29) mEq/L BUN 20 (8-23) mg/dL Creatinine 0.94 (0.70-1.30) mg/dL Est GFR ( Amer) > 60 (> 60) Est GFR (Non-Af Amer) > 60 (> 60) BUN/Creatinine Ratio 21 (6-26) Glucose 161 H (70-105) mg/dL Calculated Osmolality 290 (280-300) Calcium 9.9 (8.6-10.3) mg/dL Total Bilirubin 0.5 (0.3-1.0) mg/dL AST 18 (13-39) Units/L ALT 26 (7-52) Units/L Alkaline Phosphatase 159 H (34-104) Units/L Troponin I < 0.03 (< 0.04) ng/mL Serum Total Protein 7.4 (6.4-8.9) g/dL Albumin 4.0 (3.5-5.7) g/dL Globulin 3.4 (2.4-3.5) g/dL Albumin/Globulin Ratio 1.2 (1.1-2.2) TSH 0.916 (0.340-5.600) mcIU/mL Urine Color (Yellow) Urine Clarity (Clear) Urine pH (5.0-8.0) pH Units Ur Specific [place] (1.010-1.025) Urine Protein (Neg-Trace) mg/dL Urine Glucose (UA) (Normal) mg/dL Urine Ketones (Negative) mg/dL Urine Blood (Negative) Urine Nitrite (Negative) Urine Bilirubin (Negative) Urine Urobilinogen (Normal) mg/dL Ur Leukocyte Esterase (Negative) Urine Microscopic RBC (0-3) per hpf Urine Microscopic WBC (0-3) per hpf Ur Squamous Epith Cells (None-Few) per lpf Urine Bacteria (None-Few) per hpf Hyaline Casts (None-Few) per lpf Granular Casts (None Seen) per lpf Ur Culture Indicated? (NO) 03/20/18 Range/Units 16:05 WBC (4.3-11.1) K/mcL RBC (4.19-5.50) M/mcL Hgb (12.9-16.9) g/dL Hct (37.5-50.1) % MCV (83.0-100.0) fL MCH (28.0-33.3) pg MCHC (31.6-35.5) g/dL RDW (11.5-14.5) % Plt Count (140-400) K/mcL MPV (9.4-12.4) fL Immature Gran % (0-4) % Seg Neutrophils % % Lymphocytes % % Monocytes % % Eosinophils % % Basophils % % Neutrophils # (1.6-8.9) K/mcL Lymphocytes # (0.6-4.6) K/mcL Monocytes # (0.0-1.3) K/mcL Eosinophils # (0.0-0.6) K/mcL Basophils # (0.0-0.2) K/mcL PT (9.4-12.1) Seconds INR APTT (26.0-36.0) Seconds Sodium (136-145) mEq/L Potassium (3.5-5.1) mEq/L Chloride (98-107) mEq/L Carbon Dioxide (23-29) mEq/L BUN (8-23) mg/dL Creatinine (0.70-1.30) mg/dL Est GFR ( Amer) (> 60) Est GFR (Non-Af Amer) (> 60) BUN/Creatinine Ratio (6-26) Glucose (70-105) mg/dL Calculated Osmolality (280-300) Calcium (8.6-10.3) mg/dL Total Bilirubin (0.3-1.0) mg/dL AST (13-39) Units/L ALT (7-52) Units/L Alkaline Phosphatase (34-104) Units/L Troponin I (< 0.04) ng/mL Serum Total Protein (6.4-8.9) g/dL Albumin (3.5-5.7) g/dL Globulin (2.4-3.5) g/dL Albumin/Globulin Ratio (1.1-2.2) TSH (0.340-5.600) mcIU/mL Urine Color Dark Yellow (Yellow) Urine Clarity Clear (Clear) Urine pH 6.0 (5.0-8.0) pH Units Ur Specific [place] 1.025 (1.010-1.025) Urine Protein 30 H (Neg-Trace) mg/dL Urine Glucose (UA) Normal (Normal) mg/dL Urine Ketones Negative (Negative) mg/dL Urine Blood Negative (Negative) Urine Nitrite Negative (Negative) Urine Bilirubin Small H (Negative) Urine Urobilinogen 2.0 H (Normal) mg/dL Ur Leukocyte Esterase Negative (Negative) Urine Microscopic RBC 0-3 (0-3) per hpf Urine Microscopic WBC 3-5 H (0-3) per hpf Ur Squamous Epith Cells Few (None-Few) per lpf Urine Bacteria Few (None-Few) per hpf Hyaline Casts Few (None-Few) per lpf Granular Casts Few H (None Seen) per lpf Ur Culture Indicated? NO (NO) - Radiology Data Radiology results reviewed: Yes I reviewed the patient's radiology results. ITS Impressions Chest X-Ray 03/20/18 14:39 IMPRESSION: No acute process. D/ / Karl Alcala MD / Karl Alcala MD Interpreting Provider: Karl Alcala MD - EKG Data EKG #1 EKG attestation: Yes I reviewed and interpreted this EKG. EKG results narrative: Nonspecific T-wave sinus rhythm with rate rate 78 MD 158 QRS 86 QT 359 axis XXIX Critical Care Time Critical Care Time: No
[2018-03-20 15:09] LABS: Basophils % 0.5 %; Eosinophils # 0.1 K/mcL (0.0-0.6); Eosinophils % 0.7 %; Hematocrit 48.3 % (37.5-50.1); Hemoglobin 15.7 g/dL (12.9-16.9); Immature Granulocytes % 0.7 % (0-4); Lymphocytes % 13.7 %; Mean Corpuscular HGB Conc 32.5 g/dL (31.6-35.5); Mean Corpuscular Hemoglobin 29.8 pg (28.0-33.3); Mean Corpuscular Volume 91.8 fL (83.0-100.0); Mean Platelet Volume 9.2 fL (9.4-12.4); Monocytes # 0.5 K/mcL (0.0-1.3); Monocytes % 6.6 %; Neutrophils # 5.8 K/mcL (1.6-8.9); Platelet Count 165 K/mcL (140-400); Red Blood Count 5.26 M/mcL (4.19-5.50); Segmented Neutrophils % 77.8 %
[2018-03-20 15:10] LABS: Prothrombin Time 11.5 Seconds (9.4-12.1)
[2018-03-20 15:21] LABS: Alanine Aminotransferase 26 Units/L (7-52); Albumin/Globulin Ratio 1.2 (1.1-2.2); Alkaline Phosphatase 159 Units/L (34-104); Aspartate Amino Transferase 18 Units/L (13-39); BUN/Creatinine Ratio 21 (6-26); Bilirubin,Total 0.5 mg/dL (0.3-1.0); Blood Urea Nitrogen 20 mg/dL (8-23); Calcium 9.9 mg/dL (8.6-10.3); Carbon Dioxide 31 mEq/L (23-29); Chloride 98 mEq/L (98-107); Globulin 3.4 g/dL (2.4-3.5); Glucose 161 mg/dL (70-105); Osmolality,Calculated 290 (280-300); Potassium 3.6 mEq/L (3.5-5.1); Sodium 137 mEq/L (136-145); Total Protein 7.4 g/dL (6.4-8.9); eGFR For Non-African Americans > 60 (> 60)
[2018-03-20 15:26] LABS: Troponin I < 0.03 ng/mL (< 0.04)
[2018-03-20 15:40] LABS: Thyroid Stimulating Hormone 0.916 mcIU/mL (0.340-5.600)
[2018-03-20 16:16] LABS: Bilirubin,Urine Small (Negative); Blood,Urine Negative (Negative); Clarity,Urine Clear (Clear); Color,Urine Dark Yellow (Yellow); Glucose,Urine (UA) Normal (Normal); Ketones,Urine Negative (Negative); Leukocyte Esterase,Urine Negative (Negative); Nitrite,Urine Negative (Negative); Protein,Urine 30 mg/dL (Neg-Trace); Specific Gravity,Urine 1.025 (1.010-1.025)
[2018-03-20 16:23] LABS: Bacteria,Urine Few per hpf (None-Few); Granular Casts,Urine Few per lpf (None Seen); Hyaline Casts,Urine Few per lpf (None-Few); RBC,Urine 0-3 per hpf (0-3); Squamous Epithelial Cell,Urine Few per lpf (None-Few)
[2018-03-20] MEDS ORDERED: Naloxone 0.4 MG/ML INJ IVP PRN (18:20)
[2018-03-20] MEDS ORDERED: traZODone 50 MG TABLET PO SCH (21:00)
[2018-03-20] MEDS: *HR* OxyCODONE Immed Rel 5 MG TABLET PO SCH (22:23)
[2018-03-20] MEDS: Nicotine 21 MG PATCH.TD24 TD SCH (22:24)
[2018-03-20] MEDS: Gabapentin 400 MG CAPSULE PO SCH (22:24)
[2018-03-20] MEDS: Budesonide/Formoterol 160/4.5 1 PUFF INH IH SCH (22:45)
[2018-03-21 02:43] LABS: Basophils % 0.5 %; Eosinophils # 0.1 K/mcL (0.0-0.6); Eosinophils % 1.4 %; Hematocrit 46.7 % (37.5-50.1); Hemoglobin 15.5 g/dL (12.9-16.9); Immature Granulocytes % 0.5 % (0-4); Lymphocytes # 1.7 K/mcL (0.6-4.6); Lymphocytes % 20.5 %; Mean Corpuscular HGB Conc 33.2 g/dL (31.6-35.5); Mean Corpuscular Hemoglobin 30.3 pg (28.0-33.3); Mean Corpuscular Volume 91.2 fL (83.0-100.0); Monocytes # 0.6 K/mcL (0.0-1.3); Neutrophils # 5.6 K/mcL (1.6-8.9); Platelet Count 154 K/mcL (140-400); Red Blood Count 5.12 M/mcL (4.19-5.50); Red Cell Distribution Width 11.9 % (11.5-14.5); Segmented Neutrophils % 69.1 %
[2018-03-21 02:56] LABS: BUN/Creatinine Ratio 23 (6-26); Blood Urea Nitrogen 19 mg/dL (8-23); Calcium 9.8 mg/dL (8.6-10.3); Carbon Dioxide 33 mEq/L (23-29); Chloride 98 mEq/L (98-107); Glucose 117 mg/dL (70-105); Osmolality,Calculated 291 (280-300); Potassium 3.6 mEq/L (3.5-5.1); Sodium 139 mEq/L (136-145); eGFR For Non-African Americans > 60 (> 60)
[2018-03-21 06:25] VITALS: BP 121/74
[2018-03-21] MEDS: Gabapentin 400 MG CAPSULE PO SCH ×2 (07:14→14:12)
[2018-03-21] MEDS: *HR* OxyCODONE Immed Rel 5 MG TABLET PO SCH ×2 (07:20→14:12)
[2018-03-21] MEDS: Nicotine 21 MG PATCH.TD24 TD SCH (07:23)
[2018-03-21] MEDS: Budesonide/Formoterol 160/4.5 1 PUFF INH IH SCH (07:54)
[2018-03-21] MEDS ORDERED: amLODIPine 5 MG TABLET PO SCH (09:00)
[2018-03-21] MEDS ORDERED: Aspirin 81 MG TAB.CHEW PO SCH (09:00)
[2018-03-21] MEDS ORDERED: Tiotropium 18 MCG inhalation IH SCH ×2 (09:00→10:00)
--- NOTE | 2018-03-21 10:04 | Internal Med History&Physical ---
Date of Encounter: 03/21/18 Time of Encounter: 09:30 Assessment and Plan (1) Diaphoresis Current visit: Yes Status: Acute Now resolved. Etiology not obvious. He feels improved and wishes to be discharged home. Internal Medicine - H&P: HPI Chief complaint: Diaphoresis Admitted From: Emergency Dept Plans for Post Hospital Care: Home History of present illness: Mr. Delcid is a 62 year old male who came to emergency room complaining of diaphoresis onset earlier in the day while at leisure. He denies vomiting diarrhea pain or unusual dyspnea. His home health aide recommended he come to emergency room. He was evaluated and admitted to [facility] floor for ongoing care needs. He states he feels improved at present time and back to his baseline and wishes to be discharged home. He denies previous similar episodes. Past Med Surg Social Fam HX - Past Medical History Medical history: COPD, CVA, GERD, hepatitis, hyperlipidemia, hypertension, peripheral artery disease, RA, other Additional medical history: ESOPAGEAL STRICTURES Psychiatric history: anxiety - Past Surgical History Surgical History: orthopedic, other Additional surgical history: Neck surgery 1999 - Social History Smoking Status: Current every day smoker Packs per day: 1 Smokeless Tobacco Status: No Alcohol use: none Drug use: none - Family History Father Living Status: Hx Family Cardiac Disorders: Yes Hx Family Respiratory Disorders: Yes Hx Family Cancer: No Hx Family GI Disorders: No Hx Family Endocrine Disorder: No Hx Family Neuromuscular Disorders: No Hx Family Neurologic Disorders: No Hx Family HEENT Disorders: No Hx Family Autoimmune Disorders: No Internal Medicine - H&P: Meds Trazodone HCl [TraZODone] 150 mg PO HS 11/14/15 [History] Aspirin 81 mg PO DAILY 03/19/16 [History] Budesonide/Formoterol 160/4.5 [Symbicort 160/4.5] 2 puff IH BIDR 03/19/16 [ History] amLODIPine [Norvasc] 5 mg PO DAILY #30 tablet 03/20/16 [Rx] Albuterol Sulfate [Ventolin Hfa] 2 puff IH Q4H PRN 06/30/16 [History] Omeprazole [PriLOSEC] 20 mg PO DAILY 06/30/16 [History] Tiotropium [Spiriva] 18 mcg IH DAILY 02/03/17 [History] Gabapentin [Neurontin] 800 mg PO TID 03/15/17 [History] Potassium Chloride [K-Tab ER] 10 meq PO DAILY 10/20/17 [History] Oxycodone HCl [Oxycontin] 10 mg PO 03/20/18 [History] PredniSONE [Zan] 2 PO 03/20/18 [History] 3 Allergy/AdvReac Type Severity Reaction Status Date / Time Sulfa (Sulfonamide Allergy Hives Verified 02/23/18 19:20 Antibiotics) All Systems PM: A 10-system review of systems was performed and is negative for pertinent findings except as documented above in the HPI. Review of systems: Review of systems from his September 2016 [facility] hospitalization were reviewed and revised as below. Gen.: His weight has decreased from 106.4 kg on 10/14/2016 to 92.079 kg on admission now. He states the weight loss was intentional. Cardiovascular: He has history of hypertension and has been told he has heart failure but does not know details. He denies [place] angina DVT or pulmonary embolus Respiratory: He has smoked since age 15 up to 2 packs per day. He wears oxygen 07/02. He uses BiPAP at bedtime and when necessary during day time. He had PFTs approximately 2011 and was told he had COPD. GI: He has been diagnosed with hepatitis C but states he was treated with Harvoni and is now free of the virus. He also had hepatitis B with serologic recovery. He denies other disorders of his liver or exocrine pancreas. He has asymptomatic gallstones. : Denies hematuria dysuria or kidney stones Neurologic: He claims he has CVA 2014 affecting his left hand fourth and fifth fingers. He was told in the hospital he had ulnar neuropathy on the left side affecting his left fourth and fifth fingers. No referral was made to orthopedist for ulnar nerve transposition surgery. He has had numbness of his right hand since June 2014. He had foot drop onset spring 2014 on his left foot and wears an AFO splint. Endocrine: He denies diabetes thyroid disease or hyperlipidemia Hematology/oncology: He has history of anemia but denies internal malignancies. He had B12 deficiency documented in the past Psychiatric: He has history of depression but does not take regular medication for this [place] skeletal: He had surgery 01/20/2016 for "fluid" of the right shoulder. He had debridement 03/18/2016 by and was found to have a rotator cuff tear. He received a 6 week course of IV Kefzol for osteomyelitis. 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 He denies gout or other bone joint or muscle disorders. - Constitutional Vitals: Temp Pulse Resp BP Pulse Ox 97.8 F 67 16 121/74 92 03/21/18 06:24 03/21/18 06:24 03/21/18 08:01 03/21/18 06:24 03/21/18 08:01 Exam: Gen.: He is a well-developed well-nourished male resting comfortably in bed who appears in no acute distress at present time. HEENT: Head is atraumatic and normocephalic. Eyes: EOMI. There is no scleral icterus. Mouth: Mucosa is moist. Neck: Supple and nontender. There is no thyromegaly or adenopathy noted. Heart: Regular without murmurs gallops or ectopics Lungs: No wheezes or crackles are heard. Abdomen: Soft and nontender. No masses or guarding are noted. Extremities: There is no cyanosis edema or clubbing noted. Dorsalis pedis and posterior tibial pulses are 1-2 over 2 bilaterally. He has tobacco stains on his left index and middle finger fingernails. He has ulnar deviation of the left hand fingers with minimal deviation of the right. He appears to have some flexion contraction of the third fourth and fifth fingers on the left hand at the MCP joint. Neurologic: Mental status: He is talkative and a good historian. Cranial nerves : Smile is symmetric. Forehead wrinkles bilaterally. Tongue protrudes midline. EOMI. Motor: There is no pronator drift. He is able to lift both legs off the bed. Cerebellar: Finger to nose is intact bilaterally. Skin: Warm and dry. Internal Med - H&P Results - Labs CBC & Chem 7: 03/21/18 02:30 03/21/18 02:30 Labs: Short CBC 03/21/18 Range/Units 02:30 WBC 8.1 (4.3-11.1) K/mcL Hgb 15.5 (12.9-16.9) g/dL Hct 46.7 (37.5-50.1) % Plt Count 154 (140-400) K/mcL Neutrophils # 5.6 (1.6-8.9) K/mcL BMP 03/21/18 02:30 Sodium 139 Potassium 3.6 Chloride 98 Carbon Dioxide 33 H BUN 19 Creatinine 0.84 Glucose 117 H Calcium 9.8 Cardiac Enzymes 03/20/18 03/21/18 Range/Units 20:44 02:30 Troponin I < 0.03 < 0.03 (< 0.04) ng/mL
--- NOTE | 2018-03-21 10:12 | Discharge Summary ---
Date of Encounter: 03/21/18 Time of Encounter: 09:30 - Discharge Diagnosis (1) Diaphoresis Priority: Primary Status: Acute Hospital course: Mr. Delcid is a 62 year old male who came to emergency room complaining of diaphoresis onset earlier in the day while at leisure. He denies vomiting diarrhea pain or unusual dyspnea. His home health aide recommended he come to emergency room. He was evaluated and admitted to [facility] for ongoing care needs. Initial orders were written by the emergency room physician. I saw him on March 21 and performed a history physical and discharge. By the time I saw him he felt back to baseline and wished to be discharged home. He had no more episodes of diaphoresis after admission. Vital signs including temperature remained in normal range. He will follow with his PCP Dr. Brewster within 1 week. I strongly encouraged him to become a nonsmoker. - Time Spent with Patient Total time spent providing and/or coordinating discharge services: - Discharge Medications Home Medications: Trazodone HCl [TraZODone] 150 mg PO HS 11/14/15 [History] Aspirin 81 mg PO DAILY 03/19/16 [History] Budesonide/Formoterol 160/4.5 [Symbicort 160/4.5] 2 puff IH BIDR 03/19/16 [ History] amLODIPine [Norvasc] 5 mg PO DAILY #30 tablet 03/20/16 [Rx] Albuterol Sulfate [Ventolin Hfa] 2 puff IH Q4H PRN 06/30/16 [History] Omeprazole [PriLOSEC] 20 mg PO DAILY 06/30/16 [History] Tiotropium [Spiriva] 18 mcg IH DAILY 08/20/16 [History] Gabapentin [Neurontin] 800 mg PO TID 03/15/17 [History] Potassium Chloride [K-Tab ER] 10 meq PO DAILY 10/20/17 [History] Oxycodone HCl [Oxycontin] 10 mg PO 03/20/18 [History] PredniSONE [Zan] 2 PO 03/20/18 [History] Allergies/Adverse Reactions: 3 Allergy/AdvReac Type Severity Reaction Status Date / Time Sulfa (Sulfonamide Allergy Hives Verified 02/23/18 19:20 Antibiotics) Date of admission: 03/20/18 17:19 Primary care physician: Bhavik Brewster MD - Constitutional Vitals: Temp Pulse Resp BP Pulse Ox 97.8 F 67 16 121/74 92 03/21/18 06:24 03/21/18 06:24 03/21/18 08:01 03/21/18 06:24 03/21/18 08:01 - Patient Status Disposition: Home, Self-Care Condition: Fair - Discharge Instructions Follow Up With: Bhavik Brewster MD [Primary Care Provider] - 1 week - Diet and Activity Activity: resume usual activities as tolerated, wear oxygen at night Diet: advance to your usual diet
--- NOTE | 2018-03-23 23:38 | Electrocardiograph Report ---
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
== END 2018-03-21 14:30 | disposition home or self-care (01) ==
LOC: EMEROOPIK 14:24 → INPPIK 14:24
PROVIDERS: ADMIT Internal Medicine; ATTEND Internal Medicine

== ENCOUNTER 2018-10-24 20:29 | Observation (INO) ==
--- NOTE | 2018-10-24 20:35 | Emergency Department Note ---
Disposition Clinical Impression: Chest pain Disposition: Admitted As Inpatient Forms: ED Satisfaction Letter Chest Pain HPI - General Chief Complaint: ED Chest Pain Stated Complaint: burning in left chest Time Seen by Provider: 10/24/18 20:33 Source: patient Mode of arrival: EMS Limitations: no limitations Vital Signs Reviewed: Yes Nursing Notes Reviewed: Yes - History of Present Illness HPI Narrative: Patient complains of burning in his left chest for one hour. He has never had this happen before. He denies any pain he denies any shortness of breath nausea vomiting diaphoresis belly pain diarrhea rashes or other complaints. He did not take any medication for it. This happened while he was at rest Onset (ago): Just [employer] Duration: constant Pain Location: left chest Severity: mild Quality: other (Burning) Pain Radiation: none Improves with: nothing Worsens with: nothing Associated symptoms: Denies: nausea, vomiting, diaphoresis, dyspnea, sense of impending doom, syncope, palpitations, fever, cough, leg swelling - Related Data Home Medications Medication Instructions Recorded Confirmed Trazodone HCl [TraZODone] 150 mg PO HS 11/14/15 10/24/18 Aspirin 81 mg PO DAILY 03/19/16 10/24/18 Budesonide/Formoterol 160/4.5 2 puff IH BIDR 03/19/16 10/24/18 [Symbicort 160/4.5] Albuterol Sulfate [Ventolin Hfa] 2 puff IH Q4H PRN 06/30/16 10/24/18 Omeprazole [PriLOSEC] 20 mg PO DAILY 06/30/16 10/24/18 Tiotropium [Spiriva] 18 mcg IH DAILY 08/20/16 10/24/18 Gabapentin [Neurontin] 800 mg PO TID 03/15/17 10/24/18 Furosemide [Lasix] 20 mg PO DAILY 09/01/18 10/24/18 Oxycodone HCl [Roxybond] 10 mg PO TID 10/24/18 10/24/18 Previous Rx's Medication Instructions Recorded amLODIPine [Norvasc] 5 mg PO DAILY #30 tablet 03/20/16 Allergies Allergy/AdvReac Type Severity Reaction Status Date / Time Sulfa (Sulfonamide Allergy Hives Verified 02/23/18 19:20 Antibiotics) All systems ED: reviewed and negative except as stated. Review of Systems: As Per HPI Constitutional: Denies: fever, chills, weakness, weight change Eyes: Denies: eye pain, eye discharge, vision change ENT ED: Denies: ear pain, throat pain, dental pain, hearing loss, epistaxis, congestion, dysphagia Cardiovascular: Reports: as per HPI, chest pain Respiratory: Denies: cough, dyspnea, wheezes, hemoptysis, stridor Gastrointestinal: Denies: abdominal pain, nausea, vomiting, diarrhea, constipation, hematemesis, melena, hematochezia Genitourinary: Denies: urgency, dysuria, frequency, hematuria Musculoskeletal: Denies: back pain, neck pain, arthralgia, myalgia Integumentary: Denies: rash, abrasion, lesions Neurological: Denies: headache, weakness, numbness, paresthesias, confusion, abnormal gait, vertigo Psychiatric: Denies: anxiety, depression, suicidal thoughts, homicidal thoughts, auditory hallucinations, visual hallucinations Endocrine: Denies: fatigue Hematological/Lymphatic: Denies: easy bleeding, easy bruising Allergic/Immunologic: Denies: facial swelling, urticaria Chest Pain PMH - Past Medical History Medical history: Reports: arthritis, COPD, CVA, GERD, hepatitis, hyperlipidemia, hypertension, peripheral artery disease, RA, other Surgical history: Reports: orthopedic, other Psychiatric history: Reports: anxiety, depression - Social History Smoking Status: Current every day smoker Alcohol use: Reports: none Drug use: Reports: none Physical Exam - General Limitations: no limitations General appearance: alert, in no apparent distress - Head Head exam: atraumatic, normocephalic, normal inspection - Eye Eye exam: Present: normal appearance, PERRL, EOMI - ENT ENT exam: normal exam, normal oropharynx, mucous membranes moist - Neck Neck exam: Present: normal inspection, full ROM, trachea midline - Chest Chest inspection: Present: normal inspection, symmetric chest wall rise - Respiratory Respiratory exam: Present: normal lung sounds bilaterally - Cardiovascular Cardiovascular exam: Present: regular rate, normal rhythm, normal heart sounds - Abdominal Exam Abdominal exam: Present: soft, Non-Tender, normal bowel sounds - Extremities Exam Extremities exam: Present: normal inspection, full ROM. Absent: tenderness, pedal edema - Back Exam Back exam: Present: normal inspection, full ROM. Absent: tenderness Course Vital Signs Temperature 98.3 F 10/24/18 20:30 Pulse Rate 93 10/24/18 20:30 Respiratory Rate 22 10/24/18 20:30 Blood Pressure 124/81 10/24/18 20:30 O2 Sat by Pulse Oximetry 94 10/24/18 20:30 Temperature 98.3 F 10/24/18 20:30 Pulse Rate 94 10/24/18 21:53 Respiratory Rate 21 10/24/18 21:53 Blood Pressure 124/75 10/24/18 21:53 O2 Sat by Pulse Oximetry 91 10/24/18 21:53 Oxygen Delivery Oxygen Delivery Nasal Cannula Chest Pain - MDM Narrative Medical decision making narrative: I reviewed the patient's medication list I discussed the case with Dr. Jimenez who is graciously accepted transfer the patient - Lab Data Lab results reviewed: Yes I reviewed the patient's lab results. Result diagrams: 10/24/18 21:00 10/24/18 21:00 Lab Results 10/24/18 10/24/18 10/24/18 Range/Units 21:00 21:00 21:00 WBC 7.2 (4.3-11.1) K/mcL RBC 4.34 (4.19-5.50) M/mcL Hgb 12.8 L (12.9-16.9) g/dL Hct 39.8 (37.5-50.1) % MCV 91.7 (83.0-100.0) fL MCH 29.5 (28.0-33.3) pg MCHC 32.2 (31.6-35.5) g/dL RDW 13.3 (11.5-14.5) % Plt Count 178 (140-400) K/mcL MPV 8.9 L (9.4-12.4) fL Immature Gran % 0.1 (0-4) % Seg Neutrophils % 75.3 % Lymphocytes % 14.3 % Monocytes % 6.8 % Eosinophils % 3.1 % Basophils % 0.4 % Neutrophils # 5.4 (1.6-8.9) K/mcL Lymphocytes # 1.0 (0.6-4.6) K/mcL Monocytes # 0.5 (0.0-1.3) K/mcL Eosinophils # 0.2 (0.0-0.6) K/mcL Basophils # 0.0 (0.0-0.2) K/mcL PT 11.5 (9.4-12.1) Seconds INR 1.0 APTT 32.2 (26.0-36.0) Seconds Sodium 139 (136-145) mEq/L Potassium 3.9 (3.5-5.1) mEq/L Chloride 100 (98-107) mEq/L Carbon Dioxide 35 H (23-29) mEq/L BUN 17 (8-23) mg/dL Creatinine 0.82 (0.70-1.30) mg/dL Est GFR ( Amer) > 60 (> 60) Est GFR (Non-Af Amer) > 60 (> 60) BUN/Creatinine Ratio 21 (6-26) Glucose 168 H (70-105) mg/dL Calculated Osmolality 293 (280-300) Calcium 9.4 (8.6-10.3) mg/dL Total Bilirubin 0.3 (0.3-1.0) mg/dL AST 13 (13-39) Units/L ALT 11 (7-52) Units/L Alkaline Phosphatase 93 (34-104) Units/L Troponin I < 0.03 (< 0.04) ng/mL Serum Total Protein 6.9 (6.4-8.9) g/dL Albumin 3.7 (3.5-5.7) g/dL Globulin 3.2 (2.4-3.5) g/dL Albumin/Globulin Ratio 1.2 (1.1-2.2) - Radiology Data Radiology results reviewed: Yes I reviewed the patient's radiology results. - EKG Data EKG attestation: Yes I reviewed and interpreted this EKG. EKG results narrative: EKG shows a sinus rhythm with rate of 84 bpm. NJ interval 155 ms QRS duration 89 ms QT interval 359 and 425 ms respectively R axis of [address] or T-wave changes
[2018-10-24] MEDS ORDERED: Aspirin 81 MG TAB.CHEW PO STA (20:42)
[2018-10-24] MEDS ORDERED: 0.9 % Sodium Chloride 1,000 ML IVC SCH ×2 (20:45→23:27)
[2018-10-24 21:08] LABS: Basophils % 0.4 %; Eosinophils # 0.2 K/mcL (0.0-0.6); Eosinophils % 3.1 %; Hematocrit 39.8 % (37.5-50.1); Hemoglobin 12.8 g/dL (12.9-16.9); Immature Granulocytes % 0.1 % (0-4); Lymphocytes % 14.3 %; Mean Corpuscular HGB Conc 32.2 g/dL (31.6-35.5); Mean Corpuscular Hemoglobin 29.5 pg (28.0-33.3); Mean Corpuscular Volume 91.7 fL (83.0-100.0); Mean Platelet Volume 8.9 fL (9.4-12.4); Monocytes # 0.5 K/mcL (0.0-1.3); Monocytes % 6.8 %; Neutrophils # 5.4 K/mcL (1.6-8.9); Platelet Count 178 K/mcL (140-400); Red Blood Count 4.34 M/mcL (4.19-5.50); Red Cell Distribution Width 13.3 % (11.5-14.5); Segmented Neutrophils % 75.3 %
[2018-10-24 21:15] LABS: Prothrombin Time 11.5 Seconds (9.4-12.1)
[2018-10-24 21:18] LABS: Activated Partial Thrombo Time 32.2 Seconds (26.0-36.0)
[2018-10-24 21:23] LABS: Alanine Aminotransferase 11 Units/L (7-52); Albumin 3.7 g/dL (3.5-5.7); Albumin/Globulin Ratio 1.2 (1.1-2.2); Alkaline Phosphatase 93 Units/L (34-104); Aspartate Amino Transferase 13 Units/L (13-39); BUN/Creatinine Ratio 21 (6-26); Bilirubin,Total 0.3 mg/dL (0.3-1.0); Blood Urea Nitrogen 17 mg/dL (8-23); Calcium 9.4 mg/dL (8.6-10.3); Carbon Dioxide 35 mEq/L (23-29); Chloride 100 mEq/L (98-107); Globulin 3.2 g/dL (2.4-3.5); Glucose 168 mg/dL (70-105); Osmolality,Calculated 293 (280-300); Potassium 3.9 mEq/L (3.5-5.1); Sodium 139 mEq/L (136-145); Total Protein 6.9 g/dL (6.4-8.9); eGFR For Non-African Americans > 60 (> 60)
[2018-10-24 21:27] LABS: Troponin I < 0.03 ng/mL (< 0.04)
[2018-10-24] MEDS: Nitroglycerin 0.4 MG TAB.SUBL SL PRN ×3 (21:47→22:24)
[2018-10-24] MEDS ORDERED: Naloxone 0.4 MG/ML INJ IVP PRN (23:27)
[2018-10-24] MEDS ORDERED: Nitroglycerin 0.4 MG TAB.SUBL SL PRN (23:27)
[2018-10-25] MEDS: *HR* OxyCODONE Immed Rel 5 MG TABLET PO SCH ×4 (00:13→20:37)
[2018-10-25] MEDS: traZODone 50 MG TABLET PO SCH ×2 (00:13→20:38)
[2018-10-25 06:13] LABS: Basophils % 0.5 %; Eosinophils # 0.2 K/mcL (0.0-0.6); Eosinophils % 3.5 %; Hematocrit 40.5 % (37.5-50.1); Immature Granulocytes % 0.2 % (0-4); Lymphocytes # 1.2 K/mcL (0.6-4.6); Lymphocytes % 20.4 %; Mean Corpuscular HGB Conc 32.1 g/dL (31.6-35.5); Mean Corpuscular Hemoglobin 29.6 pg (28.0-33.3); Mean Corpuscular Volume 92.3 fL (83.0-100.0); Mean Platelet Volume 8.9 fL (9.4-12.4); Monocytes # 0.4 K/mcL (0.0-1.3); Monocytes % 6.2 %; Platelet Count 159 K/mcL (140-400); Red Blood Count 4.39 M/mcL (4.19-5.50); Red Cell Distribution Width 13.2 % (11.5-14.5); Segmented Neutrophils % 69.2 %
[2018-10-25 06:37] LABS: BUN/Creatinine Ratio 21 (6-26); Blood Urea Nitrogen 16 mg/dL (8-23); Calcium 9.4 mg/dL (8.6-10.3); Carbon Dioxide 34 mEq/L (23-29); Chloride 102 mEq/L (98-107); Glucose 109 mg/dL (70-105); Osmolality,Calculated 292 (280-300); Potassium 4.2 mEq/L (3.5-5.1); Sodium 140 mEq/L (136-145); eGFR For Non-African Americans > 60 (> 60)
[2018-10-25] MEDS: amLODIPine 5 MG TABLET PO SCH (09:02)
[2018-10-25] MEDS: Gabapentin 400 MG CAPSULE PO SCH ×3 (09:02→20:37)
[2018-10-25] MEDS: Aspirin 81 MG TAB.CHEW PO SCH (09:02)
[2018-10-25] MEDS: Furosemide 20 MG TABLET PO SCH (09:02)
[2018-10-25] MEDS: Budesonide/Formoterol 160/4.5 1 PUFF INH IH SCH ×2 (09:25→21:41)
[2018-10-25] MEDS: Tiotropium 18 MCG inhalation IH SCH (09:26)
--- NOTE | 2018-10-25 15:16 | Electrocardiograph Report ---
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
--- NOTE | 2018-10-25 15:59 | Internal Med History&Physical ---
Date of Encounter: 10/25/18 Time of Encounter: 15:25 Assessment and Plan (1) Chest pain Current visit: Yes Status: Acute Etiology not obvious. Repeat cardiac enzymes were ordered in emergency room. D-dimer will be checked for further evaluation. Qualifiers: Chest pain type: unspecified Qualified Code(s): R07.9 - Chest pain, unspecified (2) Dyspnea Current visit: Yes Status: Acute Chest CT will be done. D-dimer has been ordered to determine if contrast is needed. Qualifiers: Dyspnea type: shortness of breath Qualified Code(s): R06.02 - Shortness of breath; R06.00 - Dyspnea, unspecified; R06.01 - Orthopnea (3) Neuropathy Current visit: Yes Status: Acute TSH was normal at 0.916 on 03/20/2018 B12 level was normal at 875 on 10/14/2016. PCP can order further workup as needed. Internal Medicine - H&P: HPI Chief complaint: Chest discomfort, dyspnea Admitted From: Emergency Dept Plans for Post Hospital Care: Home History of present illness: Mr. Delcid is a 63 year old male who came to emergency room stating he had a sudden onset of "warm" sensation in his left chest, diaphoresis and dyspnea while talking on the phone approximately 1930 the day of admission. He did not take any Rx at home. When the discomfort persisted for several minutes he called EMS and was brought to emergency room. He was evaluated and admitted to [facility] floor for ongoing care needs. He denies previous similar episodes. He states he is pain-free at the present time. Cardiovascular history is pertinent for hypertension. He denies PA , angina DVT or pulmonary embolus. Echocardiogram 07/01/2016 showed LVEF of 60%. The interventricular septum and posterior wall thickness measurements were 0.80 cm. each. E/A ratio was 1.3. No significant valvular abnormality was seen except a tricuspid valve vegetation. Blood cultures grew MSSA and he was treated with IV antibiotics for endocarditis. He has been nonambulatory since 2014 except for transfers. He uses a power chair for mobility. Respiratory history is significant for having smoked since age 15 up to 2 packs per day. He wears oxygen 24/7. He uses BiPAP at bedtime and as needed during the daytime. He reports PFTs approximately 2011 showed COPD. He states he had chest CT at [facility] July 2018 which showed a "lung mass". He reports bronchoscopy with biopsy was done. He was told later that the lung mass was no larger than "a grain of rice". He does not know pathology findings. He denies significant coughing or unusual dyspnea in the past few days. Past Med Surg Social Fam HX - Past Medical History Medical history: arthritis, COPD, CVA, GERD, hepatitis, hyperlipidemia, hypertension, peripheral artery disease, RA, other Additional medical history: ESOPAGEAL STRICTURES Psychiatric history: anxiety, depression - Past Surgical History Surgical History: orthopedic, other Additional surgical history: Neck surgery 1999. bronchoscopy, rt shoulder scoped x2 - Social History Smoking Status: Current every day smoker Smokeless Tobacco Status: No Alcohol use: none Drug use: none - Family History Father Living Status: Hx Family Cardiac Disorders: Yes Hx Family Respiratory Disorders: Yes Hx Family Cancer: No Hx Family GI Disorders: No Hx Family Endocrine Disorder: No Hx Family Neuromuscular Disorders: No Hx Family Neurologic Disorders: No Hx Family HEENT Disorders: No Hx Family Autoimmune Disorders: No Internal Medicine - H&P: Meds Trazodone HCl [TraZODone] 150 mg PO HS 11/14/15 [History] Aspirin 81 mg PO DAILY 03/19/16 [History] Budesonide/Formoterol 160/4.5 [Symbicort 160/4.5] 2 puff IH BIDR 03/19/16 [History] amLODIPine [Norvasc] 5 mg PO DAILY #30 tablet 03/20/16 [Rx] Albuterol Sulfate [Ventolin Hfa] 2 puff IH Q4H PRN 06/30/16 [History] Omeprazole [PriLOSEC] 20 mg PO DAILY 06/30/16 [History] Tiotropium [Spiriva] 18 mcg IH DAILY 08/20/16 [History] Gabapentin [Neurontin] 800 mg PO TID 03/15/17 [History] Furosemide [Lasix] 20 mg PO DAILY 09/01/18 [History] Oxycodone HCl [Roxybond] 10 mg PO TID 10/24/18 [History] Allergy/AdvReac Type Severity Reaction Status Date / Time Sulfa (Sulfonamide Allergy Hives Verified 02/23/18 19:20 Antibiotics) All Systems PM: A 10-system review of systems was performed and is negative for pertinent findings except as documented above in the HPI. Review of systems: Review of systems from his March 2018 [facility] hospitalization were reviewed and revised as below. Gen.: His weight decreased from 106.4 kg on 10/14/2016 to 92.079 kg on admission 2017 but has risen to 98.203 kg now Cardiovascular: As per history of present illness Respiratory: As per history of present illness GI: He has been diagnosed with hepatitis C but states he was treated with Harvoni and is now free of the virus. He also had hepatitis B with serologic recovery. He denies other disorders of his liver or exocrine pancreas. He has asymptomatic gallstones. : Denies hematuria dysuria or kidney stones Neurologic: He claims he has CVA 2014 affecting his left hand fourth and fifth fingers. He was told in the hospital he had ulnar neuropathy on the left side affecting his left fourth and fifth fingers. No referral was made to orthopedist for ulnar nerve transposition surgery. He has had numbness of his right hand since June 2014. He had foot drop onset spring 2014 on his left foot and wears an AFO splint. He reports he has been diagnosed with neuropathy "all over his body". Endocrine: He denies diabetes thyroid disease or hyperlipidemia Hematology/oncology: He has history of anemia but denies internal malignancies. He had B12 deficiency documented in the past Psychiatric: He has history of depression but does not take regular medication for this [place] skeletal: He had surgery 01/20/2016 for "fluid" of the right shoulder. He had debridement 03/18/2016 by and was found to have a rotator cuff tear. He received a 6 week course of IV Kefzol for osteomyelitis. He has a diagnosis of rheumatoid arthritis and follows with a peoplesoft analyst. He denies gout or other bone joint or muscle disorders. - Constitutional Vitals: Temp Pulse Resp BP Pulse Ox 97.6 F 72 12 127/72 95 10/25/18 11:21 10/25/18 11:21 10/25/18 09:25 10/25/18 11:21 10/25/18 11:21 Exam: Gen.: He is a well developed well-nourished male resting comfortably in bed who appears in no acute distress at present time HEENT: Head is atraumatic and normocephalic. Eyes: EOMI. There is no scleral icterus. Mouth: Mucosa is moist. Neck: Supple and nontender. There is no thyromegaly or adenopathy noted. Heart: Regular without murmurs gallops or ectopics Lungs: No wheezes or crackles are heard. He has egophony in the right posterior mid and upper lung jonas. Chest: There is no tenderness of the chest wall to palpation Abdomen: Soft and nontender. No masses or guarding are noted. Extremities: There is 0 to trace edema of the dorsum of the feet and lower legs bilaterally. Dorsalis pedis and posterior tibial pulses are trace to 1+ palpable bilaterally. Neurologic: Mental status: He is talkative and a good historian. Cranial nerves: Smile is symmetric. Forehead wrinkles bilaterally. Tongue protrudes midline. EOMI. Motor: There is no pronator drift. Cerebellar: Finger to nose is intact bilaterally. Skin: Warm and dry Internal Med - H&P Results - Labs CBC & Chem 7: 10/25/18 05:45 10/25/18 05:45 Labs: Short CBC 10/24/18 10/25/18 Range/Units 21:00 05:45 WBC 7.2 5.8 (4.3-11.1) K/mcL Hgb 12.8 L 13.0 (12.9-16.9) g/dL Hct 39.8 40.5 (37.5-50.1) % Plt Count 178 159 (140-400) K/mcL Neutrophils # 5.4 4.0 (1.6-8.9) K/mcL BMP 10/24/18 10/25/18 21:00 05:45 Sodium 139 140 Potassium 3.9 4.2 Chloride 100 102 Carbon Dioxide 35 H 34 H BUN 17 16 Creatinine 0.82 0.75 Glucose 168 H 109 H Calcium 9.4 9.4 Cardiac Enzymes 10/24/18 10/24/18 10/25/18 Range/Units 21:00 22:58 05:45 Troponin I < 0.03 < 0.03 < 0.03 (< 0.04) ng/mL Liver Function 10/24/18 Range/Units 21:00 Total Bilirubin 0.3 (0.3-1.0) mg/dL AST 13 (13-39) Units/L ALT 11 (7-52) Units/L Alkaline Phosphatase 93 (34-104) Units/L Albumin 3.7 (3.5-5.7) g/dL - Impressions ITS Impressions Chest X-Ray 10/24/18 20:41 IMPRESSION: No acute process. D/ / Karl Alcala MD / Karl Alcala MD Interpreting Provider: Karl Alcala MD
[2018-10-25] MEDS ORDERED: Isovue-370 500 ML BOTTLE IVP ONE (16:52)
[2018-10-26] MEDS: Aspirin 81 MG TAB.CHEW PO SCH (08:14)
[2018-10-26] MEDS: Gabapentin 400 MG CAPSULE PO SCH ×2 (08:15→15:04)
[2018-10-26] MEDS: Furosemide 20 MG TABLET PO SCH (08:15)
[2018-10-26] MEDS: amLODIPine 5 MG TABLET PO SCH (08:15)
[2018-10-26] MEDS: *HR* OxyCODONE Immed Rel 5 MG TABLET PO SCH ×2 (08:16→15:04)
[2018-10-26 10:55] VITALS: BP 122/80
--- NOTE | 2018-10-26 11:19 | Discharge Summary ---
Date of Encounter: 10/26/18 Time of Encounter: 11:05 - Discharge Diagnosis (1) Chest pain Priority: Primary Status: Resolved Qualifiers: Chest pain type: unspecified Qualified Code(s): R07.9 - Chest pain, unspecified (2) Dyspnea Priority: Secondary Status: Chronic Qualifiers: Dyspnea type: shortness of breath Qualified Code(s): R06.02 - Shortness of breath; R06.00 - Dyspnea, unspecified; R06.01 - Orthopnea (3) Neuropathy Priority: Secondary Status: Chronic Hospital course: Mr. Delcid is a 63 year old male who came to emergency room stating he had a sudden onset of "warm" sensation in his left chest, diaphoresis and dyspnea while talking on the phone approximately 1930 the day of admission. He did not take any Rx at home. When the discomfort persisted for several minutes he called EMS and was brought to emergency room. He was evaluated and admitted to [facility] for ongoing care needs. Initial orders were written by the emergency room physician. I saw him on October 25 and performed a history and physical. Repeat cardiac enzymes showed no evidence of myocardial damage. D-dimer returned slightly elevated at 651. Chest CTA showed no obvious pulmonary embolism. When I saw him on October 26 he had resolution without recurrence of left chest discomfort. He felt stable for discharge home which I felt was reasonable. The etiology of the chest di scomfort was not determined with certainty. He will follow at [facility] within 1 week. I encouraged him strongly to become a nonsmoker. - Time Spent with Patient Total time spent providing and/or coordinating discharge services: - Discharge Medications Prescriptions: Continue Trazodone HCl [TraZODone] 150 mg PO HS Budesonide/Formoterol 160/4.5 [Symbicort 160/4.5] 2 puff IH BIDR Aspirin 81 mg PO DAILY amLODIPine [Norvasc] 5 mg PO DAILY #30 tablet Omeprazole [PriLOSEC] 20 mg PO DAILY Albuterol Sulfate [Ventolin Hfa] 2 puff IH Q4H PRN PRN Reason: Shortness Of Breath Tiotropium [Spiriva] 18 mcg IH DAILY Gabapentin [Neurontin] 800 mg PO TID Furosemide [Lasix] 20 mg PO DAILY Oxycodone HCl [Roxybond] 10 mg PO TID Home Medications: Trazodone HCl [TraZODone] 150 mg PO HS 11/14/15 [History] Aspirin 81 mg PO DAILY 03/19/16 [History] Budesonide/Formoterol 160/4.5 [Symbicort 160/4.5] 2 puff IH BIDR 03/19/16 [History] amLODIPine [Norvasc] 5 mg PO DAILY #30 tablet 03/20/16 [Rx] Albuterol Sulfate [Ventolin Hfa] 2 puff IH Q4H PRN 06/30/16 [History] Omeprazole [PriLOSEC] 20 mg PO DAILY 06/30/16 [History] Tiotropium [Spiriva] 18 mcg IH DAILY 08/20/16 [History] Gabapentin [Neurontin] 800 mg PO TID 03/15/17 [History] Furosemide [Lasix] 20 mg PO DAILY 09/01/18 [History] Oxycodone HCl [Roxybond] 10 mg PO TID 10/24/18 [History] Allergies/Adverse Reactions: Allergy/AdvReac Type Severity Reaction Status Date / Time Sulfa (Sulfonamide Allergy Hives Verified 02/23/18 19:20 Antibiotics) Date of admission: 10/24/18 23:25 [facility] care physician: [facility] - Constitutional Vitals: Temp Pulse Resp BP Pulse Ox 98.0 F 74 17 122/80 95 10/26/18 10:52 10/26/18 10:52 10/26/18 10:52 10/26/18 10:52 10/26/18 10:52 - Patient Status Disposition: Home, Self-Care - Discharge Instructions Follow Up With: [facility] [Primary Care Provider] - 1 week - Diet and Activity Activity: resume usual activities as tolerated, wear oxygen at all times Diet: advance to your usual diet
[2018-10-26] MEDS: Budesonide/Formoterol 160/4.5 1 PUFF INH IH SCH (12:16)
[2018-10-26] MEDS: Tiotropium 18 MCG inhalation IH SCH (12:16)
== END 2018-10-26 15:20 | disposition home or self-care (01) ==
LOC: INPPIK 20:29 → EMEROOPIK 20:29 → INPPIK 23:39
PROVIDERS: ADMIT Internal Medicine; ATTEND Internal Medicine

== ENCOUNTER 2021-11-02 19:31 | Observation (INO) ==
[2021-11-02] MEDS ORDERED: Azithromycin 500 MG in 0.9 % Sodium Chloride 250 ML IVPB ONE (19:36)
[2021-11-02] MEDS ORDERED: methylPREDNISolone 125 MG/2 ML VIAL IVP ONE (19:36)
[2021-11-02] MEDS ORDERED: Ipratropium/Albuterol Neb 3 ML IH ONE (19:36)
[2021-11-02] MEDS ORDERED: cefTRIAXone 2,000 MG in 0.9 % Sodium Chloride 10 ML IVP ONE (19:36)
[2021-11-02 20:09] LABS: Basophils % 0.3 %; Eosinophils % 0.2 %; Hematocrit 36.9 % (37.5-50.1); Hemoglobin 11.6 g/dL (12.9-16.9); INR 1.3; Immature Granulocytes % 0.7 % (0-4); Lymphocytes # 0.2 K/mcL (0.6-4.6); Lymphocytes % 3.8 %; Mean Corpuscular HGB Conc 31.4 g/dL (31.6-35.5); Mean Corpuscular Hemoglobin 29.7 pg (28.0-33.3); Mean Corpuscular Volume 94.6 fL (83.0-100.0); Mean Platelet Volume 9.3 fL (9.4-12.4); Monocytes # 0.7 K/mcL (0.0-1.3); Monocytes % 11.7 %; Platelet Count 166 K/mcL (140-400); Prothrombin Time 14.1 Seconds (9.4-12.1); Red Cell Distribution Width 13.1 % (11.5-14.5); Segmented Neutrophils % 83.3 %
[2021-11-02 20:20] LABS: Alanine Aminotransferase 30 Units/L (7-52); Albumin 3.4 g/dL (3.5-5.7); Albumin/Globulin Ratio 0.9 (1.1-2.2); Alkaline Phosphatase 77 Units/L (34-104); Aspartate Amino Transferase 27 Units/L (13-39); BUN/Creatinine Ratio 15 (6-26); Bilirubin,Direct 0.6 mg/dL (0.0-0.2); Bilirubin,Indirect 0.5 mg/dL (0.0-1.0); Bilirubin,Total 1.1 mg/dL (0.3-1.0); Blood Urea Nitrogen 12 mg/dL (8-23); Calcium 9.5 mg/dL (8.6-10.3); Carbon Dioxide 32 mEq/L (23-29); Chloride 100 mEq/L (98-107); Globulin 3.7 g/dL (2.4-3.5); Glucose 159 mg/dL (70-105); Osmolality,Calculated 291 (280-300); Potassium 3.8 mEq/L (3.5-5.1); Sodium 139 mEq/L (136-145); Total Protein 7.1 g/dL (6.4-8.9); Troponin I < 0.03 ng/mL (< 0.04); eGFR For African Americans > 60 (> 60); eGFR For Non-African Americans > 60 (> 60)
[2021-11-02] MEDS ORDERED: Albuterol 2.5 MG/3 ML NEBULIZER IH ONE (22:14)
[2021-11-03] MEDS ORDERED: Melatonin 3 MG TABLET PO PRN (00:09)
[2021-11-03] MEDS ORDERED: Albuterol 2.5 MG/3 ML NEBULIZER IH PRN (00:09)
[2021-11-03] MEDS ORDERED: MOM Conc 10 ML UD.LIQ PO PRN (00:09)
[2021-11-03] MEDS ORDERED: Mag Hydrox/Al Hydrox/Simeth 30 ML UDC PO PRN (00:09)
[2021-11-03] MEDS ORDERED: Naloxone 0.4 MG/ML INJ IVP PRN (00:09)
[2021-11-03] MEDS ORDERED: Ondansetron 4 MG/2 ML VIAL IVP PRN (00:09)
[2021-11-03] MEDS: 0.9 % Sodium Chloride 1,000 ML IVC SCH ×2 (00:56→08:49)
[2021-11-03] MEDS: MethylPREDNISolone 40 MG/ML VIAL IVP SCH ×2 (01:11→08:48)
[2021-11-03] MEDS ORDERED: traZODone 50 MG TABLET PO SCH (01:45)
[2021-11-03] MEDS: Ipratropium/Albuterol Neb 3 ML IH SCH ×2 (03:41→09:11)
[2021-11-03] MEDS ORDERED: *HR* OxyCODONE Immed Rel 5 MG TABLET PO SCH (09:00)
[2021-11-03] MEDS ORDERED: Aspirin 81 MG TAB.CHEW PO SCH (09:00)
[2021-11-03] MEDS ORDERED: Gabapentin 300 MG CAPSULE PO SCH (09:00)
[2021-11-03] MEDS ORDERED: amLODIPine 5 MG TABLET PO SCH (09:00)
[2021-11-03 09:24] VITALS: RESP 18
[2021-11-03 10:38] VITALS: O2SAT 92
[2021-11-03 10:50] VITALS: BP 158/81; PULSE 101; TEMP 98
[2021-11-03] MEDS ORDERED: Azithromycin 500 MG in 0.9 % Sodium Chloride 250 ML IVPB ONE (18:00)
[2021-11-03] MEDS ORDERED: cefTRIAXone 2,000 MG in 0.9 % Sodium Chloride Mini Bag 100 ML IVPB SCH (18:00)
== END 2021-11-03 13:33 | disposition home or self-care (01) ==
LOC: INPPIK 19:31 → EMEROOPIK 19:31 → INPPIK 23:28
PROVIDERS: ADMIT Family Medicine; ATTEND Family Medicine

== ENCOUNTER 2022-03-07 19:58 | Observation (INO) ==
[2022-03-07] MEDS ORDERED: *HR* HYDROmorphone (PF) 1 MG/ML SYRINGE IVP ONE ×2 (20:53→23:06)
[2022-03-07] MEDS ORDERED: 0.9 % Sodium Chloride 1,000 ML IV ONE ×2 (20:53→23:06)
[2022-03-07] MEDS ORDERED: Ondansetron 4 MG/2 ML VIAL IVP ONE (20:53)
[2022-03-07 23:26] LABS: Basophils % 0.3 %; Hematocrit 36.3 % (37.5-50.1); Hemoglobin 11.5 g/dL (12.9-16.9); Immature Granulocytes % 0.6 % (0-4); Lymphocytes # 0.4 K/mcL (0.6-4.6); Lymphocytes % 3.1 %; Mean Corpuscular HGB Conc 31.7 g/dL (31.6-35.5); Mean Corpuscular Hemoglobin 30.3 pg (28.0-33.3); Mean Corpuscular Volume 95.8 fL (83.0-100.0); Mean Platelet Volume 9.6 fL (9.4-12.4); Monocytes # 0.7 K/mcL (0.0-1.3); Monocytes % 5.7 %; Neutrophils # 10.6 K/mcL (1.6-8.9); Platelet Count 155 K/mcL (140-400); Red Blood Count 3.79 M/mcL (4.19-5.50); Red Cell Distribution Width 13.8 % (11.5-14.5); Segmented Neutrophils % 90.3 %; White Blood Count 11.7 K/mcL (4.3-11.1)
[2022-03-07 23:48] LABS: Albumin 3.1 g/dL (3.5-5.7); Albumin/Globulin Ratio 0.9 (1.1-2.2); Bilirubin,Total 0.8 mg/dL (0.3-1.0); Calcium 9.1 mg/dL (8.6-10.3); Globulin 3.6 g/dL (2.4-3.5); Potassium 4.4 mEq/L (3.5-5.1); Total Protein 6.7 g/dL (6.4-8.9)
[2022-03-08] MEDS ORDERED: Ibuprofen 400 MG TABLET PO PRN (01:03)
[2022-03-08] MEDS ORDERED: Naloxone 0.4 MG/ML INJ IVP PRN (01:03)
[2022-03-08] MEDS: *HR* OxyCODONE Immed Rel 5 MG TABLET PO PRN ×4 (01:17→22:41)
[2022-03-08] MEDS: amLODIPine 5 MG TABLET PO SCH (08:31)
[2022-03-08] MEDS: Aspirin 81 MG TAB.CHEW PO SCH (08:31)
[2022-03-08] MEDS: Gabapentin 300 MG CAPSULE PO SCH ×3 (08:31→20:12)
[2022-03-08] MEDS: Budesonide/Formoterol 160/4.5 1 PUFF INH IH SCH ×2 (09:47→21:10)
[2022-03-08] MEDS: Tiotropium 10 INH DOSE IH SCH (09:48)
[2022-03-08] MEDS ORDERED: Acetaminophen 325 MG TABLET PO PRN (16:22)
[2022-03-08] MEDS: traZODone 50 MG TABLET PO SCH (22:41)
[2022-03-08] MEDS: Melatonin 3 MG TABLET PO SCH (22:42)
[2022-03-08] MEDS ORDERED: 0.9 % Sodium Chloride 1,000 ML IVC SCH (23:00)
[2022-03-09] MEDS: *HR* Heparin 5,000 UNIT/ML VIAL SQ SCH ×4 (00:34→21:03)
[2022-03-09] MEDS: *HR* OxyCODONE Immed Rel 5 MG TABLET PO PRN ×3 (05:48→21:06)
[2022-03-09 08:05] LABS: Basophils % 0.2 %; Eosinophils # 0.1 K/mcL (0.0-0.6); Eosinophils % 1.5 %; Hematocrit 30.9 % (37.5-50.1); Hemoglobin 9.8 g/dL (12.9-16.9); Immature Granulocytes % 0.9 % (0-4); Lymphocytes # 0.8 K/mcL (0.6-4.6); Lymphocytes % 18.1 %; Mean Corpuscular HGB Conc 31.7 g/dL (31.6-35.5); Mean Corpuscular Hemoglobin 30.8 pg (28.0-33.3); Mean Corpuscular Volume 97.2 fL (83.0-100.0); Mean Platelet Volume 9.3 fL (9.4-12.4); Monocytes # 0.5 K/mcL (0.0-1.3); Monocytes % 10.3 %; Neutrophils # 3.2 K/mcL (1.6-8.9); Platelet Count 140 K/mcL (140-400); Red Blood Count 3.18 M/mcL (4.19-5.50); Red Cell Distribution Width 14.2 % (11.5-14.5); White Blood Count 4.6 K/mcL (4.3-11.1)
[2022-03-09 08:34] LABS: Calcium 8.5 mg/dL (8.6-10.3); Potassium 3.9 mEq/L (3.5-5.1)
[2022-03-09] MEDS: amLODIPine 5 MG TABLET PO SCH (09:00)
[2022-03-09] MEDS: Aspirin 81 MG TAB.CHEW PO SCH (09:00)
[2022-03-09] MEDS: Gabapentin 300 MG CAPSULE PO SCH ×3 (09:00→21:03)
[2022-03-09] MEDS: Budesonide/Formoterol 160/4.5 1 PUFF INH IH SCH ×2 (09:58→21:49)
[2022-03-09] MEDS: Tiotropium 10 INH DOSE IH SCH (09:58)
[2022-03-09 18:17] LABS: Bilirubin,Urine Negative (Negative); Blood,Urine Trace-lysed (Negative); Clarity,Urine Clear (Clear); Color,Urine Yellow (Yellow); Glucose,Urine (UA) Normal (Normal); Ketones,Urine Negative (Negative); Leukocyte Esterase,Urine Negative (Negative); Nitrite,Urine Negative (Negative); Protein,Urine Negative (Neg-Trace); Urobilinogen,Urine Normal (Normal)
[2022-03-09 18:23] LABS: Squamous Epithelial Cell,Urine Few per hpf (None-Few); WBC,Urine 0-3 per hpf (0-3)
[2022-03-09] MEDS: traZODone 50 MG TABLET PO SCH (21:02)
[2022-03-09] MEDS: Melatonin 3 MG TABLET PO SCH (21:02)
[2022-03-10 05:01] LABS: Hematocrit 30.5 % (37.5-50.1); Hemoglobin 9.6 g/dL (12.9-16.9); Mean Corpuscular HGB Conc 31.5 g/dL (31.6-35.5); Mean Corpuscular Hemoglobin 30.6 pg (28.0-33.3); Mean Corpuscular Volume 97.1 fL (83.0-100.0); Mean Platelet Volume 9.5 fL (9.4-12.4); Platelet Count 153 K/mcL (140-400); Red Blood Count 3.14 M/mcL (4.19-5.50); Red Cell Distribution Width 14.1 % (11.5-14.5); White Blood Count 3.7 K/mcL (4.3-11.1)
[2022-03-10 05:22] LABS: BUN/Creatinine Ratio 14 (6-26); Blood Urea Nitrogen 13 mg/dL (8-23); Calcium 8.6 mg/dL (8.6-10.3); Carbon Dioxide 32 mEq/L (23-29); Chloride 106 mEq/L (98-107); Glucose 133 mg/dL (70-105); Osmolality,Calculated 298 (280-300); Sodium 143 mEq/L (136-145)
[2022-03-10] MEDS: *HR* Heparin 5,000 UNIT/ML VIAL SQ SCH ×3 (05:56→22:28)
[2022-03-10] MEDS: *HR* OxyCODONE Immed Rel 5 MG TABLET PO PRN ×3 (05:57→18:49)
[2022-03-10] MEDS: Gabapentin 300 MG CAPSULE PO SCH ×3 (07:41→22:29)
[2022-03-10] MEDS: Aspirin 81 MG TAB.CHEW PO SCH (07:41)
[2022-03-10] MEDS: amLODIPine 5 MG TABLET PO SCH (07:41)
[2022-03-10] MEDS: Budesonide/Formoterol 160/4.5 1 PUFF INH IH SCH ×2 (09:24→21:45)
[2022-03-10] MEDS: Tiotropium 10 INH DOSE IH SCH (09:25)
[2022-03-10] MEDS: Melatonin 3 MG TABLET PO SCH (22:28)
[2022-03-10] MEDS: traZODone 50 MG TABLET PO SCH (22:28)
[2022-03-11] MEDS: *HR* OxyCODONE Immed Rel 5 MG TABLET PO PRN ×5 (01:20→22:39)
[2022-03-11] MEDS: *HR* Heparin 5,000 UNIT/ML VIAL SQ SCH ×3 (05:53→22:39)
[2022-03-11] MEDS: amLODIPine 5 MG TABLET PO SCH (08:43)
[2022-03-11] MEDS: Gabapentin 300 MG CAPSULE PO SCH ×3 (08:44→22:39)
[2022-03-11] MEDS: Aspirin 81 MG TAB.CHEW PO SCH (08:44)
[2022-03-11] MEDS: Budesonide/Formoterol 160/4.5 1 PUFF INH IH SCH ×2 (08:49→21:27)
[2022-03-11] MEDS: Tiotropium 10 INH DOSE IH SCH (08:49)
[2022-03-11] MEDS: traZODone 50 MG TABLET PO SCH (22:39)
[2022-03-11] MEDS: Melatonin 3 MG TABLET PO SCH (22:39)
[2022-03-12] MEDS: *HR* OxyCODONE Immed Rel 5 MG TABLET PO PRN ×5 (03:33→22:02)
[2022-03-12] MEDS: *HR* Heparin 5,000 UNIT/ML VIAL SQ SCH ×3 (06:23→23:03)
[2022-03-12 07:40] VITALS: BP 138/73; PULSE 71; TEMP 98.1
[2022-03-12] MEDS: Budesonide/Formoterol 160/4.5 1 PUFF INH IH SCH ×2 (07:52→19:58)
[2022-03-12] MEDS: Tiotropium 10 INH DOSE IH SCH (07:52)
[2022-03-12] MEDS: Aspirin 81 MG TAB.CHEW PO SCH (08:32)
[2022-03-12] MEDS: amLODIPine 5 MG TABLET PO SCH (08:32)
[2022-03-12] MEDS: Gabapentin 300 MG CAPSULE PO SCH ×3 (08:32→22:03)
[2022-03-12 18:45] LABS: Influenza A PCR Negative (Negative); Influenza B PCR Negative (Negative); Resp. Syncytial Virus PCR Negative (Negative)
[2022-03-12 19:01] LABS: SARS-CoV-2 by PCR (In House) Negative (Negative)
[2022-03-12 21:44] VITALS: RESP 16; O2SAT 92
[2022-03-12] MEDS: Melatonin 3 MG TABLET PO SCH (23:02)
[2022-03-12] MEDS: traZODone 50 MG TABLET PO SCH (23:03)
[2022-03-13] MEDS: *HR* OxyCODONE Immed Rel 5 MG TABLET PO PRN (03:00)
== END 2022-03-13 03:00 ==
LOC: EMEROOPIK 19:58 → INPPIK 19:58
PROVIDERS: ADMIT Family Medicine; ATTEND Family Medicine

== ENCOUNTER 2022-03-26 13:32 | Observation (INO) ==
[2022-03-26] MEDS ORDERED: 0.9 % Sodium Chloride 1,000 ML IVC ONE (13:34)
[2022-03-26] MEDS ORDERED: Acetaminophen 325 MG TABLET PO ONE (13:36)
[2022-03-26 14:06] LABS: Basophils % 0.2 %; Eosinophils % 0.2 %; Hematocrit 36.1 % (37.5-50.1); Hemoglobin 11.4 g/dL (12.9-16.9); Immature Granulocytes % 0.6 % (0-4); Lymphocytes # 0.3 K/mcL (0.6-4.6); Lymphocytes % 4.2 %; Mean Corpuscular HGB Conc 31.6 g/dL (31.6-35.5); Mean Corpuscular Hemoglobin 30.6 pg (28.0-33.3); Mean Platelet Volume 8.7 fL (9.4-12.4); Monocytes # 0.4 K/mcL (0.0-1.3); Monocytes % 6.3 %; Neutrophils # 5.9 K/mcL (1.6-8.9); Platelet Count 164 K/mcL (140-400); Red Blood Count 3.72 M/mcL (4.19-5.50); Red Cell Distribution Width 14.3 % (11.5-14.5); Segmented Neutrophils % 88.5 %; White Blood Count 6.6 K/mcL (4.3-11.1)
[2022-03-26 14:17] LABS: Bilirubin,Urine Negative (Negative); Blood,Urine Negative (Negative); Clarity,Urine Clear (Clear); Color,Urine Yellow (Yellow); Glucose,Urine (UA) Normal (Normal); Ketones,Urine Trace mg/dL (Negative); Leukocyte Esterase,Urine Negative (Negative); Nitrite,Urine Negative (Negative); PH,Urine 8.5 pH Units (5.0-8.0); Protein,Urine Negative (Neg-Trace); Specific Gravity,Urine 1.015 (1.010-1.025); Urobilinogen,Urine Normal (Normal)
[2022-03-26 14:28] LABS: Calcium 9.2 mg/dL (8.6-10.3); Potassium 4.6 mEq/L (3.5-5.1)
[2022-03-26] MEDS ORDERED: Ondansetron 4 MG/2 ML VIAL IVP PRN (17:37)
[2022-03-26] MEDS ORDERED: Naloxone 0.4 MG/ML INJ IVP PRN (17:37)
[2022-03-26] MEDS ORDERED: Acetaminophen 325 MG TABLET PO PRN (17:37)
[2022-03-26] MEDS ORDERED: Albuterol 2.5 MG/3 ML NEBULIZER IH PRN (17:45)
[2022-03-26 18:11] LABS: Amphetamine Screen,Urine Negative ng/mL (Cutoff=1000); Barbiturate Screen,Urine Negative ng/mL (Cutoff=200); Benzodiazepines Screen,Urine Negative ng/mL (Cutoff=200); Cannabinoid Screen,Urine Positive ng/mL (Cutoff = 50); Cocaine Screen,Urine Negative ng/mL (Cutoff= 300); Opiate Screen,Urine Positive ng/mL (Cutoff=300); Phencyclidine Screen,Urine Negative ng/mL (Cutoff=25)
[2022-03-26 18:34] LABS: ABG Base Excess 6 mEq/L (-2 to 3); ABG HCO3 31 mEq/L (21-27); ABG Oxygen Saturation 98 % (95-98); ABG PCO2 48 mmHg (35-45); ABG PH 7.42 pH Units (7.32-7.45); ABG PO2 98 mmHg (85-104); ABG TCO2 32 mEq/L (20-26); Blood Gas Pressure Support 7 cm H2O
[2022-03-26] MEDS ORDERED: traZODone 50 MG TABLET PO SCH (21:00)
[2022-03-26] MEDS ORDERED: Melatonin 3 MG TABLET PO SCH (21:00)
[2022-03-26] MEDS: Gabapentin 300 MG CAPSULE PO SCH (21:08)
[2022-03-26] MEDS: Budesonide/Formoterol 160/4.5 1 PUFF INH IH SCH (21:59)
[2022-03-27 07:06] VITALS: TEMP 97.9
[2022-03-27 07:31] LABS: BUN/Creatinine Ratio 18 (6-26); Blood Urea Nitrogen 15 mg/dL (8-23); Calcium 9.1 mg/dL (8.6-10.3); Carbon Dioxide 33 mEq/L (23-29); Chloride 104 mEq/L (98-107); Glucose 89 mg/dL (70-105); Osmolality,Calculated 296 (280-300); Potassium 3.8 mEq/L (3.5-5.1); Sodium 143 mEq/L (136-145)
[2022-03-27 07:33] LABS: Hematocrit 32.8 % (37.5-50.1); Hemoglobin 10.1 g/dL (12.9-16.9); Mean Corpuscular HGB Conc 30.8 g/dL (31.6-35.5); Mean Corpuscular Hemoglobin 30.4 pg (28.0-33.3); Mean Corpuscular Volume 98.8 fL (83.0-100.0); Mean Platelet Volume 9.4 fL (9.4-12.4); Platelet Count 134 K/mcL (140-400); Red Blood Count 3.32 M/mcL (4.19-5.50); Red Cell Distribution Width 14.5 % (11.5-14.5); White Blood Count 3.9 K/mcL (4.3-11.1)
[2022-03-27] MEDS ORDERED: Tiotropium 10 INH DOSE IH ONE (08:30)
[2022-03-27] MEDS ORDERED: *HR* OxyCODONE/APAP 5/325 TABLET PO PRN (08:54)
[2022-03-27] MEDS: Gabapentin 300 MG CAPSULE PO SCH ×2 (08:58→15:15)
[2022-03-27] MEDS ORDERED: amLODIPine 5 MG TABLET PO SCH (09:00)
[2022-03-27] MEDS ORDERED: Aspirin 81 MG TAB.CHEW PO SCH (09:00)
[2022-03-27] MEDS: Budesonide/Formoterol 160/4.5 1 PUFF INH IH SCH (09:04)
[2022-03-27] MEDS: *HR* OxyCODONE Immed Rel 5 MG TABLET PO PRN ×2 (09:13→15:16)
[2022-03-27] MEDS ORDERED: Tiotropium 10 INH DOSE IH SCH (10:00)
[2022-03-27 12:25] VITALS: BP 116/57; PULSE 86; RESP 17; O2SAT 94
== END 2022-03-27 16:50 | disposition home health service (06) ==
LOC: EMEROOPIK 13:32 → INPPIK 13:32
PROVIDERS: ADMIT Internal Medicine; ATTEND Internal Medicine

== ENCOUNTER 2022-04-01 18:16 | Observation (INO) ==
[2022-04-01] MEDS ORDERED: 0.9 % Sodium Chloride 1,000 ML IVC ONE (18:17)
[2022-04-01 18:41] LABS: Basophils % 0.1 %; Eosinophils % 0.2 %; Hematocrit 35.7 % (37.5-50.1); Hemoglobin 11.3 g/dL (12.9-16.9); Immature Granulocytes % 0.6 % (0-4); Lymphocytes # 0.2 K/mcL (0.6-4.6); Lymphocytes % 1.8 %; Mean Corpuscular HGB Conc 31.7 g/dL (31.6-35.5); Mean Corpuscular Hemoglobin 30.5 pg (28.0-33.3); Mean Corpuscular Volume 96.5 fL (83.0-100.0); Mean Platelet Volume 9.7 fL (9.4-12.4); Monocytes # 0.4 K/mcL (0.0-1.3); Monocytes % 4.8 %; Platelet Count 208 K/mcL (140-400); Red Cell Distribution Width 14.2 % (11.5-14.5); Segmented Neutrophils % 92.5 %; White Blood Count 8.8 K/mcL (4.3-11.1)
[2022-04-01 18:46] LABS: Neutrophils # 8.1 K/mcL (1.6-8.9)
[2022-04-01 18:49] LABS: INR 1.1; Prothrombin Time 12.5 Seconds (9.4-12.1)
[2022-04-01 18:52] LABS: Activated Partial Thrombo Time 28.8 Seconds (26.0-36.0)
[2022-04-01 18:59] LABS: Bilirubin,Urine Negative (Negative); Blood,Urine Small (Negative); Clarity,Urine Clear (Clear); Color,Urine Yellow (Yellow); Glucose,Urine (UA) Normal (Normal); Ketones,Urine Negative (Negative); Leukocyte Esterase,Urine Negative (Negative); Nitrite,Urine Negative (Negative); PH,Urine 7.5 pH Units (5.0-8.0); Protein,Urine Negative (Neg-Trace); Urobilinogen,Urine Normal (Normal)
[2022-04-01 19:01] LABS: Troponin I < 0.03 ng/mL (< 0.04)
[2022-04-01 19:02] LABS: Platelet Estimate Normal (Normal)
[2022-04-01 19:03] LABS: Alanine Aminotransferase 61 Units/L (7-52); Albumin 3.5 g/dL (3.5-5.7); Alkaline Phosphatase 177 Units/L (34-104); Aspartate Amino Transferase 55 Units/L (13-39); BUN/Creatinine Ratio 15 (6-26); Bilirubin,Direct 0.3 mg/dL (0.0-0.2); Bilirubin,Indirect 0.6 mg/dL (0.0-1.0); Bilirubin,Total 0.9 mg/dL (0.3-1.0); Blood Urea Nitrogen 13 mg/dL (8-23); Calcium 9.4 mg/dL (8.6-10.3); Carbon Dioxide 32 mEq/L (23-29); Chloride 97 mEq/L (98-107); Creatine Kinase 40 Units/L (30-223); Ethanol < 10 mg/dL (Less than 10); Globulin 3.6 g/dL (2.4-3.5); Glucose 162 mg/dL (70-105); Osmolality,Calculated 286 (280-300); Potassium 4.3 mEq/L (3.5-5.1); Sodium 136 mEq/L (136-145); Total Protein 7.1 g/dL (6.4-8.9)
[2022-04-01 19:06] LABS: RBC,Urine 15-30 per hpf (0-3); WBC,Urine 0-3 per hpf (0-3)
[2022-04-01 19:27] LABS: Amphetamine Screen,Urine Negative ng/mL (Cutoff=1000); Barbiturate Screen,Urine Negative ng/mL (Cutoff=200); Benzodiazepines Screen,Urine Negative ng/mL (Cutoff=200); Cannabinoid Screen,Urine Positive ng/mL (Cutoff = 50); Cocaine Screen,Urine Negative ng/mL (Cutoff= 300); Opiate Screen,Urine Positive ng/mL (Cutoff=300); Phencyclidine Screen,Urine Negative ng/mL (Cutoff=25)
[2022-04-01] MEDS ORDERED: cefTRIAXone 2,000 MG in 0.9 % Sodium Chloride Mini Bag 100 ML IVPB ONE (19:27)
[2022-04-01] MEDS ORDERED: Azithromycin 500 MG in 0.9 % Sodium Chloride 250 ML IVPB ONE (19:27)
[2022-04-01] MEDS ORDERED: Acetaminophen 325 MG TABLET PO PRN ×2 (21:43→23:56)
[2022-04-01] MEDS ORDERED: Naloxone 0.4 MG/ML INJ IVP PRN ×2 (21:43→23:56)
[2022-04-01] MEDS ORDERED: Melatonin 3 MG TABLET PO PRN ×2 (21:43→23:56)
[2022-04-01] MEDS ORDERED: Ondansetron 4 MG/2 ML VIAL IVP PRN ×2 (21:43→23:56)
[2022-04-01] MEDS ORDERED: *HR* OxyCODONE Immed Rel 5 MG TABLET PO PRN ×2 (23:47→23:56)
[2022-04-01] MEDS ORDERED: traZODone 50 MG TABLET PO SCH (23:53)
[2022-04-02] MEDS: *HR* OxyCODONE Immed Rel 5 MG TABLET PO PRN ×6 (00:31→23:00)
[2022-04-02] MEDS: traZODone 50 MG TABLET PO SCH ×2 (00:31→23:00)
[2022-04-02 06:27] LABS: Basophils % 0.2 %; Eosinophils # 0.1 K/mcL (0.0-0.6); Eosinophils % 2.4 %; Hematocrit 31.7 % (37.5-50.1); Hemoglobin 9.9 g/dL (12.9-16.9); Immature Granulocytes % 0.4 % (0-4); Lymphocytes # 0.6 K/mcL (0.6-4.6); Lymphocytes % 12.2 %; Mean Corpuscular HGB Conc 31.2 g/dL (31.6-35.5); Mean Corpuscular Hemoglobin 30.4 pg (28.0-33.3); Mean Corpuscular Volume 97.2 fL (83.0-100.0); Mean Platelet Volume 9.6 fL (9.4-12.4); Monocytes # 0.5 K/mcL (0.0-1.3); Monocytes % 9.6 %; Neutrophils # 3.7 K/mcL (1.6-8.9); Platelet Count 180 K/mcL (140-400); Red Blood Count 3.26 M/mcL (4.19-5.50); Red Cell Distribution Width 14.5 % (11.5-14.5); Segmented Neutrophils % 75.2 %; White Blood Count 4.9 K/mcL (4.3-11.1)
[2022-04-02 06:31] LABS: INR 1.1; Prothrombin Time 11.7 Seconds (9.4-12.1)
[2022-04-02 06:34] LABS: Activated Partial Thrombo Time 28.7 Seconds (26.0-36.0)
[2022-04-02 06:43] LABS: Alanine Aminotransferase 50 Units/L (7-52); Albumin/Globulin Ratio 0.9 (1.1-2.2); Alkaline Phosphatase 173 Units/L (34-104); Aspartate Amino Transferase 47 Units/L (13-39); BUN/Creatinine Ratio 16 (6-26); Bilirubin,Total 0.6 mg/dL (0.3-1.0); Blood Urea Nitrogen 15 mg/dL (8-23); Calcium 8.7 mg/dL (8.6-10.3); Carbon Dioxide 31 mEq/L (23-29); Chloride 101 mEq/L (98-107); Globulin 3.2 g/dL (2.4-3.5); Glucose 113 mg/dL (70-105); Osmolality,Calculated 288 (280-300); Phosphorous 3.4 mg/dL (2.7-4.5); Potassium 3.7 mEq/L (3.5-5.1); Sodium 138 mEq/L (136-145); Total Protein 6.2 g/dL (6.4-8.9)
[2022-04-02 09:06] LABS: VBG HCO3 31 mEq/L (21-27); VBG PCO2 55 mmHg (41-51); VBG PH 7.35 pH Units (7.32-7.42); VBG PO2 130 mmHg (25-50)
[2022-04-02] MEDS: Azithromycin 500 MG in 0.9 % Sodium Chloride 250 ML IVPB SCH (09:34)
[2022-04-02] MEDS: Gabapentin 300 MG CAPSULE PO SCH ×3 (09:34→20:50)
[2022-04-02] MEDS ORDERED: Albuterol 2.5 MG/3 ML NEBULIZER IH PRN (09:58)
[2022-04-02] MEDS ORDERED: Ipratropium/Albuterol Neb 3 ML IH SCH (10:00)
[2022-04-02] MEDS: Budesonide/Formoterol 160/4.5 1 PUFF INH IH SCH ×2 (10:56→20:49)
[2022-04-02] MEDS: amLODIPine 5 MG TABLET PO SCH (11:02)
[2022-04-02] MEDS: predniSONE 20 MG TABLET PO SCH (11:02)
[2022-04-02] MEDS: Aspirin 81 MG TAB.CHEW PO SCH (11:02)
[2022-04-02] MEDS: Ipratropium/Albuterol Neb 3 ML IH SCH ×3 (12:11→20:49)
[2022-04-02] MEDS: cefTRIAXone 1,000 MG in 0.9 % Sodium Chloride Mini Bag 100 ML IVPB SCH (14:17)
[2022-04-02] MEDS: Tiotropium 10 INH DOSE IH SCH (14:18)
[2022-04-02] MEDS: *HR* Heparin 5,000 UNIT/ML VIAL SQ SCH (18:11)
[2022-04-02] MEDS ORDERED: traZODone 50 MG TABLET PO SCH ×2 (21:00)
[2022-04-02] MEDS: Melatonin 3 MG TABLET PO SCH (23:00)
[2022-04-03] MEDS: Ipratropium/Albuterol Neb 3 ML IH SCH ×4 (01:37→11:43)
[2022-04-03] MEDS: *HR* OxyCODONE Immed Rel 5 MG TABLET PO PRN ×5 (03:28→21:53)
[2022-04-03] MEDS: *HR* Heparin 5,000 UNIT/ML VIAL SQ SCH ×2 (05:30→16:52)
[2022-04-03] MEDS: Budesonide/Formoterol 160/4.5 1 PUFF INH IH SCH ×2 (07:46→21:21)
[2022-04-03] MEDS: Gabapentin 300 MG CAPSULE PO SCH ×3 (08:08→19:30)
[2022-04-03] MEDS: predniSONE 20 MG TABLET PO SCH (08:08)
[2022-04-03] MEDS: Azithromycin 500 MG in 0.9 % Sodium Chloride 250 ML IVPB SCH (08:09)
[2022-04-03] MEDS: amLODIPine 5 MG TABLET PO SCH (08:09)
[2022-04-03] MEDS: Aspirin 81 MG TAB.CHEW PO SCH (08:09)
[2022-04-03] MEDS: cefTRIAXone 1,000 MG in 0.9 % Sodium Chloride Mini Bag 100 ML IVPB SCH (09:39)
[2022-04-03] MEDS: Tiotropium 10 INH DOSE IH SCH (17:47)
[2022-04-03] MEDS: Melatonin 3 MG TABLET PO SCH (19:30)
[2022-04-03] MEDS: traZODone 50 MG TABLET PO SCH (19:30)
[2022-04-03] MEDS: Ipratropium/Albuterol Neb 3 ML IH PRN (21:21)
[2022-04-03] MEDS: Cefdinir 300 MG CAPSULE PO SCH (21:53)
[2022-04-04] MEDS: *HR* OxyCODONE Immed Rel 5 MG TABLET PO PRN ×5 (02:27→22:28)
[2022-04-04] MEDS: *HR* Heparin 5,000 UNIT/ML VIAL SQ SCH ×2 (04:29→16:46)
[2022-04-04] MEDS: amLODIPine 5 MG TABLET PO SCH (07:54)
[2022-04-04] MEDS: predniSONE 20 MG TABLET PO SCH (07:54)
[2022-04-04] MEDS: Aspirin 81 MG TAB.CHEW PO SCH (07:54)
[2022-04-04] MEDS: Cefdinir 300 MG CAPSULE PO SCH ×2 (07:54→22:27)
[2022-04-04] MEDS: Gabapentin 300 MG CAPSULE PO SCH ×3 (07:54→22:26)
[2022-04-04] MEDS: Azithromycin 250 MG TABLET PO SCH (09:10)
[2022-04-04] MEDS: Budesonide/Formoterol 160/4.5 1 PUFF INH IH SCH ×2 (09:29→20:56)
[2022-04-04] MEDS: Ipratropium/Albuterol Neb 3 ML IH PRN ×2 (14:32→20:56)
[2022-04-04] MEDS: Tiotropium 10 INH DOSE IH SCH (16:51)
[2022-04-04] MEDS: Melatonin 3 MG TABLET PO SCH (22:27)
[2022-04-04] MEDS: traZODone 50 MG TABLET PO SCH (22:31)
[2022-04-05] MEDS: *HR* OxyCODONE Immed Rel 5 MG TABLET PO PRN ×5 (02:45→20:02)
[2022-04-05] MEDS: *HR* Heparin 5,000 UNIT/ML VIAL SQ SCH ×2 (05:37→16:14)
[2022-04-05] MEDS: Gabapentin 300 MG CAPSULE PO SCH ×3 (08:17→20:02)
[2022-04-05] MEDS: amLODIPine 5 MG TABLET PO SCH (08:17)
[2022-04-05] MEDS: predniSONE 20 MG TABLET PO SCH (08:17)
[2022-04-05] MEDS: Azithromycin 250 MG TABLET PO SCH (08:17)
[2022-04-05] MEDS: Cefdinir 300 MG CAPSULE PO SCH ×2 (08:17→20:02)
[2022-04-05] MEDS: Aspirin 81 MG TAB.CHEW PO SCH (08:17)
[2022-04-05] MEDS: Budesonide/Formoterol 160/4.5 1 PUFF INH IH SCH ×2 (09:06→20:39)
[2022-04-05] MEDS: Ipratropium/Albuterol Neb 3 ML IH PRN (20:39)
[2022-04-05] MEDS: Tiotropium 10 INH DOSE IH SCH (21:37)
[2022-04-05] MEDS: traZODone 50 MG TABLET PO SCH (22:13)
[2022-04-05] MEDS: Melatonin 3 MG TABLET PO SCH (22:13)
[2022-04-06] MEDS: *HR* OxyCODONE Immed Rel 5 MG TABLET PO PRN ×3 (00:29→09:26)
[2022-04-06] MEDS: *HR* Heparin 5,000 UNIT/ML VIAL SQ SCH (04:41)
[2022-04-06] MEDS: Azithromycin 250 MG TABLET PO SCH (09:19)
[2022-04-06] MEDS: predniSONE 20 MG TABLET PO SCH (09:19)
[2022-04-06] MEDS: amLODIPine 5 MG TABLET PO SCH (09:19)
[2022-04-06] MEDS: Cefdinir 300 MG CAPSULE PO SCH (09:20)
[2022-04-06] MEDS: Gabapentin 300 MG CAPSULE PO SCH (09:20)
[2022-04-06] MEDS: Aspirin 81 MG TAB.CHEW PO SCH (09:20)
[2022-04-06] MEDS: Budesonide/Formoterol 160/4.5 1 PUFF INH IH SCH (09:55)
[2022-04-06 09:58] VITALS: RESP 18
[2022-04-06 11:21] VITALS: BP 132/75; PULSE 74; TEMP 98; O2SAT 94
== END 2022-04-06 13:35 | disposition home health service (06) ==
LOC: INPPIK 18:16 → EMEROOPIK 18:16 → INPPIK 21:18
PROVIDERS: ADMIT Internal Medicine; ATTEND Internal Medicine